=== PATIENT | female | born 1950 | race Caucasian/White ===

== ENCOUNTER 2025-03-30 15:35 | Inpatient (IN) | payer MEDICARE, SELFPAY ==
[2025-03-30] VITALS (7 sets, daily range): BP systolic 119–120; BP diastolic 58–60; PULSE 65–87; RESP 17–18; TEMP 37.2; O2SAT 92–98; BMI 37.1
[2025-03-30] MEDS: NYSTATIN 500,000 UNIT/5 ML UDC 500000 UNIT PO ×2 (17:32→21:18)
[2025-03-30 17:42] LABS: Mucous, Urine 0 SEEN /hpf (<or=2+)
[2025-03-30 18:11] LABS: Color, Urine Yellow (Yellow); Glucose, Dipstick 1000 mg/dl (Normal); Ketone-Dipstick 5 mg/dl (Negative); Leukocyte Esterase-Dipstick 100 /ul (Negative); Nitrite-Dipstick Negative (Negative); Occult Blood-Urine 25 /ul (Negative); Protein-Dipstick 30 mg/dl (Negative); Specific Gravity, Urine 1.025 (1.002-1.030); Urine Bilirubin Dipstick Negative (Negative)
[2025-03-30 19:13] LABS: Red Blood Cells-Urine 0-5 SEEN /hpf (0-5); Squamous Epithelial Cells - UA 0-5 SEEN /hpf (5-10); Yeast-Urine 1+ /hpf (None Seen)
[2025-03-30] MEDS: SACUBITRIL/VALSARTAN 24/26 MG TABLET 1 EACH PO (21:17)
--- NOTE | 2025-03-30 22:36 | NURSING ---
cont pulse ox machine alarm beeping, pt removed cont pulse ox off her finger. Sticker placed back on pt finger, 02 sats 93% on RA.
[2025-03-31] VITALS (7 sets, daily range): BP systolic 104–137; BP diastolic 57–73; PULSE 89–100; RESP 17–18; TEMP 36.3–36.4; O2SAT 95–96; BMI 37.1; BMI 36.6
--- NOTE | 2025-03-31 06:00 | EKG12_ITS ---
Test Reason : AM EKG Blood Pressure : */* mmHG Vent. Rate : 93 BPM Atrial Rate : 93 BPM P-R Int : 160 ms QRS Dur : 168 ms QT Int : 448 ms P-R-T Axes : 43 26 264 degrees QTcB Int : 557 ms Sinus rhythm with Premature atrial complexes Left bundle branch block Abnormal ECG No previous ECGs available Confirmed by GERARDO ESCOBEDO ([id number]), video news editor ROHAN LIMA ([id number]) on 04/06/2025 2:01:01 PM Referred By: AMANDA Confirmed By: GERARDO ESCOBEDO
[2025-03-31 07:39] LABS: Hematocrit 40.9 % (37-47); Hemoglobin 13.9 g/dL (12.0-15.0); Immature Granulocytes Count 0.050 X10^3/uL (0.0-0.0); Mean Corp Hgb Conc 34.0 g/dL (32-36); Mean Corpuscular Volume 88.1 fL (81-99); Mean Platelet Vol. 10.3 fl (6.2-12.0); NRBC Flagged by Analyzer 0 % (0-5); Platelet Count 276 K/mm3 (150-450); RBC Distribution Width CV 13.3 % (11.6-14.6); RBC Distribution Width SD 43.3 fl (35.1-43.9); Red Blood Count 4.64 M/mm3 (4.2-5.4); White Blood Count 10.2 K/mm3 (4.4-11.0)
[2025-03-31 08:15] LABS: AST(SGOT) 35 U/L (<=31); Alanine Aminotransfer ALT/SGPT 38 U/L (<=34); Albumin, Serum 3.2 g/dL (3.4-4.8); Alkaline Phosphatase 79 U/L (35-104); Anion Gap 15 (5-15); BUN 15 mg/dL (4-19); BUN/Creat Ratio 23.0 RATIO (10-20); Calcium,Total 8.9 mg/dL (7.6-11.0); Carbon Dioxide 23.4 mmol/L (21.0-32.0); Chloride 99 mmol/L (98-108); Estimated Creatinine Clearance 74.78 ml/min (50-250); Globulin 3.9 g/dL (2.2-4.2); Glucose 106 mg/dL (70-99); Magnesium 2.1 mg/dL (1.5-2.2); Potassium 3.7 mmol/L (3.3-5.1)
--- NOTE | 2025-03-31 08:34 | NURSING ---
Pt unable to confirm code status. verbal permission given from pt to call sister Janneth, to confirm. Sister verbalized understanding and agreed to have pt be a DNRCC- A no intubation. Code form filled out, signed by doctor, and placed in chart.
[2025-03-31] MEDS: SACUBITRIL/VALSARTAN 24/26 MG TABLET 1 EACH PO ×2 (09:00→20:36)
[2025-03-31] MEDS: Metoprolol(XL)Succ 25 MG Tablet PO (09:01)
--- NOTE | 2025-03-31 09:02 | EX.PCM.HP.RE ---
HPI - General General Date of Admission: 03/30/25 Date of Service: 03/31/25 Chief Complaint: POST STROKE DEBILITY HPI Narrative FOX SEPULVEDA (Etta), is a 74 yO F with past anemia, hypertension and congestive heart failure who presented to the emergency department at [facility] on 03/24/2025 with acute mental status changes. Family had not seen or heard from her in 3 days and called the police for a wellness check. She was found unresponsive in the bathroom. Noncontrast CT brain done in the emergency department demonstrated subacute versus chronic infarct involving the left thalamus and the left occipital lobe. Lactate level was elevated at 3.2. The white blood cell count was 14,000 and UA was consistent with urinary tract infection. The BUN was 23 with a creatinine of 0.78. The troponin was elevated at 184 and 180 while she was in the emergency department. No CK was done. She was placed on IV Rocephin for UTI .but, unfortunately no urine culture was done. She had BC's done and 08/12 was + for a coag neg Staph. MRI of the brain showed findings consistent with subacute ischemia involving the left thalamus and left occipital lobe. She was started on aspirin and Plavix and will continue dual antiplatelet agents for 21 days and then aspirin will be discontinued. She was continued on Zetia and started on a high intensity statin. Transthoracic echocardiogram showed severe left ventricular systolic dysfunction with an EF ranging from 22.26% to 27.4%. There was grade 3 left ventricular diastolic dysfunction, mild to moderate mitral regurgitation, mild aortic regurgitation, a mildly dilated ascending aorta at 3.9 cm. There was no PFO/ASD. Brittani was transferred to the acute inpt rehab unit at [facility] on 03/30/25 for 3 hour of therapy daily to restore function/independence at or near her level prior to the event. Prior the stroke she was living alone and managing on her own. All lab drawn this a.m. was personally reviewed. CBC is entirely within normal limits. Sodium is 137 and the potassium is 3.7. The BUN is 15 with a creatinine of 0.67 and a GFR of 92. Fasting blood sugar is 106. Calcium, phosphorus and magnesium are all within normal limits. LFTs are unremarkable. Urine obtained at admission was significant for proteinuria and glucosuria. There was greater than 100 WBCs seen. There was no bacteria seen but there was yeast present. Urine culture is pending. Lipid panel in December of 2024 showed a HDL of 48, LDL of 98 and triglycerides of 131. The overnight trending pulse ox showed that 76.91% of the time her oxygen saturation ranged from 90 to 100%. The rest of the time it ranged from 71 to 89%. She had 3 desaturation events with a low oxygen saturation of 73%. EKG done last night was personally reviewed. It shows a left bundle branch block, Qt was WNL but, QTC was prolonged to >510 msec Med list from [place] was reviewed. There is no pharmacologic DVT prophylaxis ordered. She was ordered PRN Ativan......I reviewed her OARSS and she was not on Ativan as an OP. Records we got from [facility] had her on Doxepin at night for insomnia. Slept poorly last night per nursing......awakened frequently. We obtained records from [facility] where she was seen in August of 2024 for new onset CHF. EKG at that time showed a LBBB. Echocardiogram showed an enlarged left ventricle with normal thickness and a systolic ejection fraction of 15 to 20% with diffuse hypokinesis of the left ventricle, severely enlarged left atrium, moderate to severe centrally directed mitral valve regurgitation, mild aortic valve stenosis and trivial regurgitation, mildly enlarged right ventricle and an estimated right ventricular systolic pressure of 60. The IVC was dilated. She underwent cardiac catheterization on 09/10/2024 and it showed a 50% stenosis of the mid LAD and a 50% stenosis of the mid RCA. Left main had no evidence of disease. Will need to find out if she follows regularly with a formula bottler. [facility] Medical History (Updated 04/01/25 @ 11:[address] Nicolle Seaman, ) Pulmonary hypertension Mild aortic stenosis Mitral regurgitation Left atrial enlargement Coronary artery disease Grade III diastolic dysfunction Cardiomyopathy Obesity, Class II, BMI 35-39.9 Diverticulosis Right renal stone CVA (cerebral vascular accident) Congestive heart failure (CHF) Hypertension Hypercholesterolemia Home Medications ?Medication ?Instructions ?Recorded ?Last Taken ?Type aspirin 81 mg tablet 81 mg PO DAILY heart health 03/30/25 Unknown History atorvastatin 40 mg tablet (Lipitor) 40 mg PO QHS cholesterol 03/30/25 Unknown History clopidogrel 75 mg tablet 75 mg PO DAILY heart 03/30/25 Unknown History empagliflozin 10 mg tablet 10 mg PO DAILY glucose 03/30/25 Unknown History (Jardiance) ezetimibe 10 mg tablet 10 mg PO DAILY cholesterol 03/30/25 Unknown History furosemide 40 mg tablet 40 mg PO BID fluid 03/30/25 Unknown History metoprolol succinate 25 mg 25 mg PO DAILY heart rate 03/30/25 Unknown History tablet,extended release 24 hr nitrofurantoin 100 mg PO BID UTI 03/30/25 Unknown History monohydrate/macrocrystals 100 mg capsule (Macrobid) nystatin 100,000 unit/gram topical 1 applic topical BID redness 03/30/25 Unknown History powder sacubitril 24 mg-valsartan 26 mg 1 tab PO BID CHF 03/30/25 Unknown History tablet (Entresto) spironolactone 25 mg tablet 12.5 mg PO DAILY blood pressure 03/30/25 Unknown History Allergy/AdvReac Type Severity Reaction Status Date / Time No Known Allergies Allergy Verified 03/30/25 16:01 Family History (Updated 03/31/25 @ 10:[address] Nicolle Seaman DO) Mother Heart disease Hypertension Family History unable to obtain Surgical History no surgical history Social History (Updated 03/31/25 @ 10:[address] Nicolle Seamna DO) household members: none Smoking Status: Never smoker alcohol intake: never Vital Signs Vital Signs Vital Signs: 03/30/25 16:22 03/30/25 16:34 03/30/25 16:52 Temperature 98.9 F 98.9 F Temperature Source Oral Temporal Pulse Rate 74 65 74 Pulse Strength Respiratory Rate 17 17 Respiratory Effort Normal Non-Labored Respiratory Depth Normal Respiratory Pattern Normal Blood Pressure 120/58 L 120/58 L Blood Pressure Mean 78 78 Blood Pressure Source Monitor Monitor Blood Pressure Position Semi-Fowlers Semi-Fowlers Blood Pressure Location Right Arm Right Arm Pulse Ox 94 94 95 Oxygen Delivery Method Room Air Room Air Room Air Oxygen Flow Rate (L/min) Fraction of Inspired Oxygen (FIO2) 03/30/25 20:00 03/30/25 21:07 03/30/25 21:30 Temperature Temperature Source Pulse Rate 69 Pulse Strength Respiratory Rate 18 Respiratory Effort Respiratory Depth Respiratory Pattern Blood Pressure 119/60 Blood Pressure Mean 79 Blood Pressure Source Monitor Blood Pressure Position Semi-Fowlers Blood Pressure Location Left Forearm Pulse Ox 96 98 Oxygen Delivery Method Room Air Room Air Nasal Cannula Oxygen Flow Rate (L/min) 2 Fraction of Inspired Oxygen (FIO2) 03/30/25 22:00 03/30/25 22:06 03/30/25 22:34 Temperature Temperature Source Pulse Rate 87 Pulse Strength Normal (2+) Respiratory Rate Respiratory Effort Respiratory Depth Respiratory Pattern Blood Pressure Blood Pressure Mean Blood Pressure Source Blood Pressure Position Blood Pressure Location Pulse Ox 94 92 Oxygen Delivery Method Room Air Oxygen Flow Rate (L/min) Fraction of Inspired Oxygen (FIO2) 21 03/31/25 04:00 03/31/25 08:10 Temperature 97.3 F L Temperature Source Temporal Pulse Rate 89 Pulse Strength Respiratory Rate 17 Respiratory Effort Respiratory Depth Respiratory Pattern Blood Pressure 121/73 H Blood Pressure Mean 89 Blood Pressure Source Monitor Blood Pressure Position Semi-Fowlers Blood Pressure Location Left Forearm Pulse Ox 95 95 Oxygen Delivery Method Room Air Room Air Oxygen Flow Rate (L/min) Fraction of Inspired Oxygen (FIO2) Weight Weight: 227 lb 1.218 oz Body Mass Index (BMI) 36.6 Indicators for Scoring Admitted with or Primary Diagnosis of CVA/Stroke: Yes Hx of CVA/Stroke: Yes Modified Mclennan Score MRS Score at time of Evaluation: 4-Moderate/severe disability NIHSS NIHSS 1a. Level of Consciousness: 0 - Alert; keenly responsive 1b. LOC Questions: 2 - Answers NEITHER question correctly 1c. LOC Commands: 0 - Performs BOTH tasks correctly 2. Best Gaze: 0 - Normal 3. Visual: 0 - No visual loss 4. Facial Palsy: 0 - Normal symmetrical movements (Tongue protrudes on the midline) 5a. Left Arm: 0 - No drift; arm holds 90 (or 45) degrees for full 10 seconds 5b. Right Arm: 2 - Some effort against gravity; (she is able to flex the RUE at the elbow somewhat. ) 6a. Left Le - No drift; leg holds 30-degree position for full 5 seconds 6b. Right Le - No effort against gravity; leg falls to bed immediately (she has some movement at the knee and the ankle and she is able to plantar fles and dorsiflex) 7. Limb Ataxia: 0 - Absent (Cannot be tested due to no effort against gravity with the R arm or leg. ) 8. Sensory: 1 - [id number] sensory loss; (decreased on the R compared to the left. ) 9. Best Language: 2 - Severe aphasia; (expressive > receptive. ) 10. Dysarthria: 1 = Laud-ye-ndjzctph dysarthria; 11. Extinction and Inattention: 0 - No abnormality Total: 11 Stroke Questions Stroke Team Activated: No Physical Exam Narrative She is moaning a lot and can not tell me why. Making good eye contact when I am addressing her or the therapists are talking with her. Const alert and no apparent distress General Appearance: cooperative; Negative for combative Nutritional Appearance: obese HEENT normocephalic and head/scalp atraumatic HEENT Narrative: Dry MM and she has thrush Eyes PERRL, EOMs intact bilaterally, conjunctivae normal, no scleral icterus and normal visual quinn by confrontation Eyes Narrative: No discharge eyes. No mattering of the eyelashes. General Eye: normal appearance of both eyes Neck supple, no JVD, No nodes and no carotid bruits General: trachea midline Chest Chest: symmetrical chest wall rise Resp normal respiratory effort and normal air movement Resp Narrative: Not tachypneic. Respirations are not labored. She does seem to get MARADIAGA. She laid flat in bed to be examined and she had no orthopnea. Takes the oxygen off when nursing applies. Effort and Inspection: Negative for pursed lip breathing Cardio regular rate, regular rhythm, S1 normal heart sound, S2 normal heart sound, no murmurs, no rub and no gallops Cardio Narrative: No ectopy GI normal to inspection, nondistended, normoactive bowel sounds, soft to palpation and non-tender GI Narrative: Obese. No guarding palpation. Bladder / Kidney Exam: catheter in place urethral (inserted due to severe excoriation of the perineum present at admission due to yeast and to being wet. ) Back/Spine General Back: CVA tenderness Extremity Extremity Narrative: No pitting edema of the ankles. ARAM wraps are too tight and were not wrapped properly. Pedal pulses are 2+. No openings in the skin of the LE's. No heel ulcers. Skin Skin Narrative: Skin damage over the buttocks and the perineum appear to be related to urinary and fecal incontinence rather than to pressure ulceration. She has an erythematous rash over the mons, the inner thighs, the labia majora, beneath the pannus and there are satellite lesions present in keeping with a alexandro infection. No odor. Hair: normal Neuro Neuro Narrative: The tongue protrudes on the midline. The palate elevates symmetrically. There is no appreciable facial droop. The R eye does not close as tightly as the left. She can shrug both shoulders. She was able to flex the R biceps for OT. She has a weak hand electric gas appliances demonstrator on the R. No effort against gravity in the RLE. She is able to plantar flex and dorsiflex both feet. CAn not test for ataxia. She has some dysarthria and she has aphasia. There is decreased sensation on the R when compared to the left. Psych cooperative Results Lab / Micro Data 03/31/25 07:05 03/31/25 07:05 Labs: Laboratory Results - last 24 hr 03/30/25 17:30: Urine Color Yellow, Urine Clarity Clear, Urine pH 5.0, Ur Specific [place] 1.025, Urine Protein 30 H, Urine Glucose (UA) 1000 H, Urine Ketones 5 H, Urine Occult Blood 25 H, Urine Nitrite Negative, Urine Bilirubin Negative, Urine Urobilinogen Normal, Ur Leukocyte Esterase 100 H, Urine RBC 0-5 SEEN, Urine WBC >100 SEEN, Ur Squamous Epith Cells 0-5 SEEN, Urine Bacteria 0 SEEN, Urine Mucus 0 SEEN, Urine Yeast 1+ 03/30/25 18:37: POC Glucose 120 H 03/30/25 21:12: POC Glucose 122 H 03/31/25 06:34: POC Glucose 119 H 03/31/25 07:05: WBC 10.2, RBC 4.64, Hgb 13.9, Hct 40.9, MCV 88.1, MCH 30.0, MCHC 34.0, RDW Std Deviation 43.3, RDW Coeff of Tonny 13.3, Plt Count 276, MPV 10.3, Immature Gran % (Auto) 0.500, Neut % (Auto) 75.5 H, Lymph % (Auto) 13.6 L, [place] % (Auto) 7.0, Eos % (Auto) 2.7, Baso % (Auto) 0.7, Absolute Neuts (auto) 7.7, Absolute Lymphs (auto) 1.39, Nucleated RBC % 0, Sodium 137, Potassium 3.7, Chloride 99, Carbon Dioxide 23.4, Anion Gap 15, BUN 15, Creatinine 0.67 L, Estim Creat Clear Calc 74.78, Est GFR (MDRD) Non-Af 92, BUN/Creatinine Ratio 23.0 H, Glucose 106 H, Hemoglobin A1c 5.7, Calcium 8.9, Phosphorus 3.3, Magnesium 2.1, Total Bilirubin 0.45, AST 35 H, ALT 38 H, Alkaline Phosphatase 79, Total Protein 7.1, Albumin 3.2 L, Globulin 3.9, Albumin/Globulin Ratio 0.8 L Assessment & Plan Assessment/Plan (1) Physical debility: (2) CVA (cerebral vascular accident): QUALIFIERS: CVA mechanism: unspecified Qualified Code(s): I63.9 - Cerebral infarction, unspecified (3) Left hemiplegia: (4) Aphasia complicating stroke: (5) Apraxia of speech: (6) Intertrigo of genitocrural region: (7) Intertrigo of skin fold of abdomen: (8) Thrush, oral: (9) UTI (urinary tract infection): QUALIFIERS: Urinary tract infection type: acute cystitis Hematuria presence: without hematuria Qualified Code(s): N30.00 - Acute cystitis without hematuria PLAN: Present at admission to acute rehab. She was transferred to on Macrobid and prior to that received Rocephin at the previous hospital. (10) Urinary incontinence: QUALIFIERS: Urinary Incontinence type: urinary incontinence without sensory awareness Qualified Code(s): N39.42 - Incontinence without sensory awareness (11) Fecal incontinence: QUALIFIERS: Fecal incontinence type: full incontinence of feces Qualified Code(s): R15.9 - Full incontinence of feces (12) Hypoxemia associated with sleep: PLAN: Overnight trending pulse ox abnormal. High risk for RASHARD. Plan on a sleep study at [place] from rehab. (13) Cardiomyopathy: QUALIFIERS: Cardiomyopathy type: dilated Qualified Code(s): I42.0 - Dilated cardiomyopathy PLAN: non-obstructive CAD on Cath (14) Grade III diastolic dysfunction: (15) Coronary artery disease: QUALIFIERS: Coronary Disease-Associated Artery/Lesion type: qu[place] artery [place] vs. transplanted heart: qu[place] heart Associated angina: without angina Qualified Code(s): I25.10 - Atherosclerotic heart disease of [place] coronary artery without angina pectoris (16) Left atrial enlargement: (17) Mitral regurgitation: QUALIFIERS: Cardiac valve disease etiology: nonrheumatic Qualified Code(s): I34.0 - Nonrheumatic mitral (valve) insufficiency PLAN: Moderate to severe. (18) Mild aortic stenosis: (19) Left bundle branch block: (20) QT prolongation: (21) Pulmonary hypertension: PLAN: PA systolic estimated at 60 on ECHO done within the past year. (22) Hypercholesterolemia: (23) Hypertension: QUALIFIERS: Hypertension type: primary hypertension Qualified Code(s): I10 - Essential (primary) hypertension (24) Obesity, Class II, BMI 35-39.9: (25) Diverticulosis: (26) Right renal stone: PLAN: Plan PLAN PT for gait stability OT for ADL's ST for evaluation Analgesics as needed Bowel protocol Fall precautions Assess for Anxiety/Depression GI prophylaxis -not at this time. She ate 75 to 100% of her breakfast and has no guarding when I palpate the epigastric region. No history of GERD or peptic ulcer disease when I review her notes from [facility]. DVT prophylaxis with Lovenox 40 mg subcu daily Follow up with PCP, cardiology (Dr. Sanches at [place]), neurology and [facility] following DC from Rehab AM lab including CMP, CBC, Mag and Phos - personally reviewed. Magnesium and potassium are within normal limits. Hemoglobin A1c is 5.7. She is on empagliflozin for congestive heart failure, not for diabetes mellitus. Had been taking doxepin at bedtime but, she has QT prolongation and this medication is contraindicated. Will try Melatonin. Will need a 30-day event monitor at discharge. Etiology of the ischemic stroke? No hemorrhagic conversion on imaging. No known hx of AF. Suspect she has RASHARD......could be having PAF when she is hypoxic at night. Continue dual antiplatelet agents and discontinue aspirin after 21 days. Will continue on Plavix. Continue Zetia and high intensity Lipitor. Continue Entresto and other cardiac medications. Avoid medications that can lead to QT prolongation. Change the Nystatin powder to cream. Change the Nystatin swish and swallow to Mycelex.......she is unable to understand swishing. Monostat vaginal cream for 7 days for suspected vaginal candidiasis. Maintain the Barillas catheter for a few days to try and get the perineum healed. Trying to keep oxygen supplementation on anytime she is napping or sleeping due to sleep hypoxemia. If she is able would like to do a formal sleep study at the time of discharge to assess for obstructive sleep apnea. She keeps taking the oxygen off so this is going to be difficult. Acetaminophen every 6 hours as needed for pain. Charges/Coding Visit Charges Inpatient E&M: 12331 Init Hosp L3
[2025-03-31] MEDS: NYSTATIN 500,000 UNIT/5 ML UDC 500000 UNIT PO (09:03)
--- NOTE | 2025-03-31 09:27 | WOUNDNOTE ---
skin photo: bilateral buttocks
--- NOTE | 2025-03-31 09:27 | WOUNDNOTE ---
skin photo: perineum
--- NOTE | 2025-03-31 09:29 | WOUNDNOTE ---
Verbal consent obtained from patient for skin photos of buttocks and perineum. therapy, Dr Seaman, and nursing present as well. see skin photos.
--- NOTE | 2025-03-31 09:30 | WOUNDNOTE ---
Was asked to see patient for evaluate perineum and bilateral buttocks. patient was sent to [facility] from [facility]. Pt with incontinence associated skin damage. does not appear to be pressure related. pt was incontinent of soft unformed stool. paige care provided. applied Triad cream. Pt tolerated well. see skin photos.
[2025-03-31] MEDS: Nystatin/Triamcin Cream Tube 1 APPLIC TOPICAL ×2 (13:28→20:35)
--- NOTE | 2025-03-31 14:54 | CHAPLAIN ---
Type of Pastoral Visit _x__ Initial Visit ___ Follow-up Visit ___ On-call Visit ___ General Patient Visit ___ Spiritual Assessment ___ Family Conference ___ Bereavement ___ Rapid Response ___ Code Blue ___ Other (describe below) Pastoral Care Referral From _x__ Patient ___ Family ___ Nurse ___ Physician ___ Telegraph Service Clerk ___ Senior Statistician ___ Other (describe below) Sacrament/Intervention _x__ Active listening ___ Anointing ___ Orthodox ___ Bereavement ___ Communion ___ Ceci exploration ___ ___ Life review _x__ Prayer ___ Reconciliation ___ Sacrament of Sick _x__ Supportive presence ___ Wedding ___ Other (describe below) Pastoral Comments patient is awake and acknowledges her weakness as her therapies begin in [place]; pt makes attempts to answer questions and make statements but there is some effort to it all; pt clearly accepts invitation for a prayer; support given and offer of future help
--- NOTE | 2025-03-31 16:09 | REHABEVAL_ITS ---
Admission Information Primary Diagnosis:: Post stroke debility Status Changes from Prescreening?: No changes Identified Actual Problem List:: Infection, UTI, Skin Intergrity, Pain, ALteration in Cmfrt, Cognitve Impr/Memory Loss, Bladder Incontinence, Bowel, Incontinence, Alteration in Sleep, Mobility Impaired, Self Care Deficit, BP, Hypertension, Alteration/ Air Exchange and Alteration-Leisure Activ. Potential Problem List:: DVT, Bleeding, Infection, UTI, Aspiration, Falls, Skin Integrity and Depression Risk of Complications DVT: LMWH and - (Arthur wrap's) Bleeding: Monitor Lab Values, Nursing to Teach Precautions for anti-coagulation therapy., Wound, if applicable, to be assessed every shift. and Stroke patients assessed for lethargy or change in status. Infection: Clinical Staff to Monitor for S/S of infection: and S/S of infection include fever, redness, warmth, etc. Urinary Tract Infection: Monitor for frequency, burning, discomfort, or incon tinence. and Nursing will obtain urine sample for urinalysis and C&S when ordered. Aspiration: Clinical staff will monitor for coughing, drooling, congestion., Speech will evaluate swallowing and dsyphasia. and Nursing will monitor patient swallowing during meals. Falls: Patient will be evaluated for Fall Precautions and Patient will be placed on Fall Precautions as indicated per protocol. Skin Breakdown: Nursing will assess skin daily using assessment tool. and Nursing will place on Skin Breakdown Precautions as indicated. Pain: Clinical staff will assess patient's pain level per protocol., Medications will be given, if needed, and the pain level reassessed. and Other methods: Massage, distraction, decrease stimulus, etc. used PRN. Plan of Care Patient requires physician specializing in physical medicine and rehab oversight to provide close medical supervision of rehab issues including: Pain Management, Sleep Problems, Bowel and Bladder, Medical and co-morbidity Management, DVT prophylaxis, Rehabilitation Leadership and Coordination of treatment team Patient needs Physical Therapy: For a minimum of 1 hour and At least 5 out of 7 days Patient needs Physical Therapy to improve:: Mobility, Strengthening, Transfers, Stretching, ROM, Endurance, Stairs, Gait and Balance Patient needs Occupational Therapy: For a minimum of 1 hour and At least 5 out of 7 days Patient needs Occupational Therapy to improve ADL's incl.: Eating, Grooming, Bathing, Dressing, Toileting, Toilet transfers, Community Reintegration, Higher functioning activities, Household tasks, Adaptive Equipment, Splinting and Other activities as determined Patient requires speech therapy: For a minimum of 1 hour and At least 5 out of 7 days Patient requires speech therapy for: Swallowing, Cognition, Language Skills and Compensatory Strategies Patient requires 03/03 Rehabilitation Nursing for: Pain Issues, Identifying and preventing risk factors, Monitoring and reporting current medical conditions, Assisting with ambulation, transfer, and all ADL's, Teaching patients about disease process and medications, Family teaching, Providing safe environment, Bowel and Bladder Issues, Skin integrity and Medication Management Patient needs Dry Starch Operator/ Case Management for: Discharge Planning, Arranging Home Equipment or Services and Family Interventions Patient needs Dietary and Nutrition Services for: Adequate Nutrition, Nutritional Supplements and Nutritional Education Goals Goals Patient will remain: free from falls Patient will perform eating at: MOD I level of assist. Patient will perform bed mobility at: MOD I level of assist. Patient will complete transfers from bed to chair at: - (Minimum assistance) Patient will ambulate: - (20 feet with least restrictive device at min assist) Patient will complete upper body dressing at: - (Min assist) Patient will complete lower body dressing at: - (Min assist with adaptive equipment as needed) Patient will complete toilet transfer at: - (Min assist) Patient will complete toileting at: - (Min assist) Patient will perform bathing at: - (Upper body bathing at min assist and lower body bathing at min assist with adaptive equipment as needed) Patient will perform Tub/Shower transfer at: - (Min assist using DME as needed) Patient will complete grooming at: - (Set up while sitting at the sink) Patient will achieve: - (2 steps with 2 handrails at min assist to allow access to the home entrance) Patient will have pain level of: of 3 or less Patient's skin will: remain intact Patient will receive: adequate nutrition. Discharge Planning Pt Prognosis for Sig. Practical Improv. w/in Reasonable Time: Good Estimated Length of stay (days): 21 Anticipated D/C Destination: TBD Was Preadmission Assessment Accurate?: Yes
--- NOTE | 2025-03-31 16:09 | NURSING ---
New orders this shift for mycelex, triad cream, monistat at hs, and lovenox injections daily. Had overnight pulse ox completed and needs to wear oxygen at 2 lpm via nasal cannula when sleeping and at bedtime.
--- NOTE | 2025-03-31 17:30 | NURSING ---
transport nurse is not working, beeping despite replacing and moving around. contact company and they will send a replacement device to her home. current device taken off and packed away to be sent back via [employer].
[2025-03-31] MEDS: Miconazole-7 Nitrate Cream 1 APPLIC VAGINAL (20:36)
[2025-03-31] MEDS: MELATONIN 3 MG TABLET PO (20:37)
[2025-04-01] VITALS (8 sets, daily range): BP systolic 110–145; BP diastolic 61–87; PULSE 78–97; RESP 16–18; TEMP 36.3–36.9; O2SAT 96–98; BMI 36.1
[2025-04-01] MEDS: Nystatin/Triamcin Cream Tube 1 APPLIC TOPICAL ×3 (06:47→21:13)
[2025-04-01] MEDS: SACUBITRIL/VALSARTAN 24/26 MG TABLET 1 EACH PO ×2 (07:47→21:08)
[2025-04-01] MEDS: Metoprolol(XL)Succ 25 MG Tablet PO (07:48)
--- NOTE | 2025-04-01 10:40 | RAD_ITS ---
PROCEDURE: LUMBAR SPINE 2 OR 3 VIEWS 04/01/2025 REASON FOR EXAM: PAIN POST FALL TECHNIQUE: LUMBAR SPINE 2 OR 3 VIEWS COMPARISON: None. RAD/Lumbar Spine 2 or 3 Views IMPRESSION: Moderate aortic calcification is seen. Prominent degenerative changes are seen throughout the lumbar spine, with disc narrowing at every level greatest at L3-L4 and L4-L5 levels. Mid to lower lumbar posterior facet hypertrophy is seen. No evidence of spondylolysis or spondylolisthesis. No fracture site is evident. If clinical concern persists, short-term follow-up imaging may be obtained to r ule out a currently occult fracture. Reading Location: [place] [id number]
--- NOTE | 2025-04-01 10:40 | RAD_ITS ---
PROCEDURE: ABDOMEN SINGLE VIEW 04/01/2025 REASON FOR EXAM: CONSTIPATION TECHNIQUE: Three-view supine abdomen COMPARISON: None. RAD/Abdomen Single View IMPRESSION: Contrast material is seen throughout numerous descending colon and sigmoid colo n diverticula. The bowel-gas pattern is unremarkable. No excess stool burden is clearly appre ciated. Prominent degenerative changes of the spine are seen. At least mild bilateral sacroiliac joint degenerative changes are noted. Asymmetric right hip joint degenerative changes are seen, with associated at le ast mild joint space narrowing. Reading Location: [place] [address]
--- NOTE | 2025-04-01 11:07 | PN_ITS ---
Subjective Subjective Afebrile VSS -blood pressure over the past 24 hours has ranged from 104/57 to 137/65. The heart rate is within normal limits. Maintaining appropriate oxygen saturation on RA Oral intake - FOOD variable. Ate 75 to 100% of her breakfast this morning and 50 to 74% of supper last night. FLUIDS poor. Oral intake on 03/31/2025 was only 710 cc. Since admission she is minus between 1400 and 1500 cc. The weight today is 225 pounds and 1 ounce which is down from 227 pounds and 1.2 ounces yesterday. Discussed with nursing - no problems that need addressed Reviewed the THERAPY notes Medication list reviewed. she did not sleep well with Melatonin last night per nursing. Slept intermittently. She moans fairly constantly and yells out at times. Remains incontinent of stool and urine.......no significant BM....mostly small smear. She is unaware that she is having a BM or that she is wet. Could not tell me her age or the month today. Answering yes and no questions appropriately when I asked if she was having pain she said yes but, was unable to tell me where the pain was located. She is not tachypneic. I reviewed the notes we received from cardiologyand her PCP. Objective Data Objective Data Vital Signs: Vital Signs Temp Pulse Resp BP Pulse Ox O2 Del Method O2 Flow Rate 98.4 F 78 16 110/62 96 Room Air 2 04/01/25 06:52 04/01/25 10:00 04/01/25 06:52 04/01/25 10:00 04/01/25 08:31 04/01/25 10:00 03/30/25 21:30 FiO2 21 03/30/25 22:34 Oxygen Flow Rate (L/min) 2 Oxygen Delivery Method Room Air Weight: 225 lb 1 oz Body Mass Index (BMI) 36.1 Intake & Output: Intake and Output for Last 24 Hours 03/30/25 03/31/25 04/01/25 23:59 23:59 23:59 Intake Total 360 / 360 710 / 710 Output Total 450 / 450 1350 / 1650 700 / 700 Balance -90 / -90 -640 / -940 -700 / -700 Lab / Micro Data 03/31/25 07:05 03/31/25 07:05 Labs: Laboratory Results - last 24 hr 03/31/25 11:23: POC Glucose 117 H 03/31/25 16:10: POC Glucose 101 03/31/25 21:45: POC Glucose 126 H 04/01/25 06:47: POC Glucose 120 H Radiography Diagnostic Testing: Radiology Impression KUB X-Ray 04/01/25 10:40 IMPRESSION: Contrast material is seen throughout numerous descending colon and sigmoid colon diverticula. The bowel-gas pattern is unremarkable. No excess stool burden is clearly appreciated. Prominent degenerative changes of the spine are seen. At least mild bilateral sacroiliac joint degenerative changes are noted. Asymmetric right hip joint degenerative changes are seen, with associated at least mild joint space narrowing. Reading Location: [facility] Lumbar Spine X-Ray 04/01/25 10:40 IMPRESSION: Moderate aortic calcification is seen. Prominent degenerative changes are seen throughout the lumbar spine, with disc narrowing at every level greatest at L3-L4 and L4-L5 levels. Mid to lower lumbar posterior facet hypertrophy is seen. No evidence of spondylolysis or spondylolisthesis. No fracture site is evident. If clinical concern persists, short-term follow-up imaging may be obtained to rule out a currently occult fracture. Reading Location: [place] [address] Physical Exam Const alert Constitutional Narrative: Looks distressed and she is moaning. when I asked if she needed to use the BR she said yes........nursing reports she had already been incontinent. Severe speech apraxia. Difficult to discern what she needs. General Appearance: cooperative HEENT Mouth: dry mucous membranes Neck supple Cardio regular rhythm, no murmurs, no rub and no gallops Cardio Narrative: resting HR is mildly increased. No ectopy. GI normal to inspection, nondistended, normoactive bowel sounds, soft to palpation and non-tender GI Narrative: No guarding with palpation Extremity Extremity Narrative: No discernible calf tenderness. No pitting edema of the ankles or distal lower extremities. Assessment & Plan Assessment/Plan (1) Physical debility: (2) CVA (cerebral vascular accident): QUALIFIERS: CVA mechanism: unspecified Qualified Code(s): I63.9 - Cerebral infarction, unspecified (3) Left hemiplegia: (4) Aphasia complicating stroke: (5) Apraxia of speech: (6) Intertrigo of genitocrural region: (7) Intertrigo of skin fold of abdomen: (8) Thrush, oral: (9) UTI (urinary tract infection): QUALIFIERS: Urinary tract infection type: acute cystitis H ematuria presence: without hematuria Qualified Code(s): N30.00 - Acute cystitis without hematuria (10) Urinary incontinence: QUALIFIERS: Urinary Incontinence type: urinary incontinence without sensory awareness Qualified Code(s): N39.42 - Incontinence without sensory awareness (11) Fecal incontinence: QUALIFIERS: Fecal incontinence type: full incontinence of feces Q ualified Code(s): R15.9 - Full incontinence of feces (12) Hypoxemia associated with sleep: (13) Cardiomyopathy: QUALIFIERS: Cardiomyopathy type: dilated Qualified Code(s): I42.0 - Dilated cardiomyopathy (14) Grade III diastolic dysfunction: (15) Coronary artery disease: QUALIFIERS: Coronary Disease-Associated Artery/Lesion type: [place] artery [place] vs. transplanted heart: [place] heart Associated angina: without angina Qualified Code(s): I25.10 - Atherosclerotic heart disease of [place] coronary artery without angina pectoris (16) Left atrial enlargement: (17) Mitral regurgitation: QUALIFIERS: Cardiac valve disease etiology: nonrheumatic Q ualified Code(s): I34.0 - Nonrheumatic mitral (valve) insufficiency (18) Mild aortic stenosis: (19) Left bundle branch block: (20) QT prolongation: (21) Pulmonary hypertension: (22) Hypercholesterolemia: (23) Hypertension: QUALIFIERS: Hypertension type: primary hypertension Qualified Code(s): I10 - Essential (primary) hypertension (24) Obesity, Class II, BMI 35-39.9: (25) Diverticulosis: (26) Right renal stone: PLAN: Plan 1. Continue therapy 2. Obtain a KUB and lumbar sacral spine x-rays today 3. Discontinue Accu-Cheks....she is not diabetic. HGBA1C was 5.7. 4. Sleep study at discharge from rehab 1. Do you snore loudly? Unknown 2. Do you often feel tired, fatigued or sleepy during the day? Unknown 3. Has anyone ever observed you stop breathing during sleep? Unknown 4. Do you have (or are you being treated for) HTN? Yes BMI 36.3 AGE 74 Neck circumference 48 cm Gender female Total 4.....consistent with high risk for RASHARD. She also has an abnormal overnight trending pulse ox with desaturations lasting > 60 sec. Charges/Coding Visit Charges Inpatient E&M: 88579 Subs Hosp L1
[2025-04-01] MEDS: MELATONIN 3 MG TABLET PO (21:08)
[2025-04-01] MEDS: Miconazole-7 Nitrate Cream 1 APPLIC VAGINAL (21:09)
[2025-04-02] VITALS (8 sets, daily range): BP systolic 112–126; BP diastolic 55–68; PULSE 82–95; RESP 16–18; TEMP 36.2–36.5; O2SAT 95–100; BMI 35.9
[2025-04-02] MEDS: Nystatin/Triamcin Cream Tube 1 APPLIC TOPICAL ×3 (06:56→23:46)
[2025-04-02] MEDS: SACUBITRIL/VALSARTAN 24/26 MG TABLET 1 EACH PO ×2 (07:55→23:45)
[2025-04-02] MEDS: Metoprolol(XL)Succ 25 MG Tablet PO (07:56)
[2025-04-02] MEDS: Miconazole-7 Nitrate Cream 1 APPLIC VAGINAL (23:45)
[2025-04-02] MEDS: MELATONIN 3 MG TABLET PO (23:45)
[2025-04-03 03:10] VITALS: BMI 35.9
[2025-04-03 06:00] VITALS: BP 117/54; PULSE 82; RESP 16; TEMP 36.4; O2SAT 98; BMI 36.1
[2025-04-03] MEDS: Nystatin/Triamcin Cream Tube 1 APPLIC TOPICAL ×3 (06:43→22:57)
[2025-04-03 08:01] VITALS: PULSE 82
[2025-04-03] MEDS: Metoprolol(XL)Succ 25 MG Tablet PO (08:01)
[2025-04-03] MEDS: SACUBITRIL/VALSARTAN 24/26 MG TABLET 1 EACH PO ×2 (08:02→22:56)
[2025-04-03 11:11] VITALS: BMI 36.1
[2025-04-03 17:56] VITALS: BP 108/54; PULSE 92; RESP 18; TEMP 36.3
[2025-04-03] MEDS: MELATONIN 3 MG TABLET PO (22:57)
[2025-04-03] MEDS: Miconazole-7 Nitrate Cream 1 APPLIC VAGINAL (22:57)
[2025-04-03 23:15] VITALS: BP 116/73; PULSE 82; RESP 18; TEMP 36.7; O2SAT 95
[2025-04-04 03:10] VITALS: BMI 36.1
[2025-04-04 05:52] VITALS: BP 125/54; PULSE 81; RESP 16; TEMP 36.7; O2SAT 100
[2025-04-04] MEDS: Nystatin/Triamcin Cream Tube 1 APPLIC TOPICAL ×3 (05:57→20:05)
[2025-04-04 07:50] VITALS: PULSE 81
[2025-04-04] MEDS: Metoprolol(XL)Succ 25 MG Tablet PO (07:50)
[2025-04-04] MEDS: SACUBITRIL/VALSARTAN 24/26 MG TABLET 1 EACH PO ×2 (07:50→20:07)
--- NOTE | 2025-04-04 09:39 | PN_ITS ---
Subjective Subjective Brittani was seen on TEAM rounds today. Family was present in the room. All questions were answered to their satisfaction. Afebrile VSS -blood pressure over the weekend ranged from 108/54 to 122/59. The heart rate is within normal limits. Maintaining appropriate oxygen saturation on RA Oral intake - FOOD mostly good FLUIDS good Discussed with nursing - no problems that need addressed. Nursing tells me that the perineum is doing much better than at admission and the pt denies any pain in the groin/perineum today. Reviewed the THERAPY notes Medication list reviewed. When I saw the patient prior to TEAM meeting she was doing very well. She was enunciating much better and her voice projected well. she was speaking slowly for increased clarity. She did not appear to be in any discomfort and she was smiling and very alert. She told me she had some discomfort in the RUE but, it was controlled with Tylenol and she did not feel she needed any additional medication. She was calm all morning and working with therapy. When her family came she started moaning and yelling and c/o terrible pain in her legs. She was slapping the bed with the LUE but, she would stop moaning and yelling to reach for her water and then take a drink and go back to slapping the LUE and L leg on the bed. After her family left she was calm and quit moaning and yelling. She had no RODRIGUES, lightheadedness, N/V/abd pain, calf pain. She denied pain anywhere except the RUE until her family entered the room. Objective Data Objective Data Vital Signs: Vital Signs Temp Pulse Resp BP Pulse Ox O2 Del Method O2 Flow Rate 98.0 F 81 16 125/54 H 100 Room Air 2 04/04/25 05:52 04/04/25 07:50 04/04/25 05:52 04/04/25 05:52 04/04/25 05:52 04/04/25 05:52 04/02/25 00:00 FiO2 21 03/30/25 22:34 Oxygen Flow Rate (L/min) 2 Oxygen Delivery Method Room Air Weight: 224 lb 6.889 oz Body Mass Index (BMI) 36.1 Intake & Output: Intake and Output for Last 24 Hours 08/23/25 08/24/25 08/25/25 23:59 23:59 23:59 Intake Total 1260 / 1380 1590 / 1590 200 / 200 Output Total 1025 / 1025 1225 / 1225 700 / 700 Balance 235 / 355 365 / 365 -500 / -500 Lab / Micro Data 03/31/25 07:05 03/31/25 07:05 Micro: Microbiology 03/30/25 17:30 Urine, Clean Catch Urine Culture - Final Presumptive C albicans Physical Exam Const alert and no apparent distress Constitutional Narrative: Smiling, speech is much clearer and I am able to understand her without difficulty. She is calm and pleasant. General Appearance: cooperative HEENT HEENT Narrative: Thrush has resolved. Denies painful swallowing. Resp normal respiratory effort and clear to auscultation bilaterally Effort and Inspection: Negative for tachypneic Cardio regular rate, regular rhythm and no gallops Cardio Narrative: No ectopy GI normal to inspection, nondistended, normoactive bowel sounds and soft to palpation GI Narrative: Having regular BM's....she is incontinent. Extremity Extremity Narrative: No pitting edema of the LE's. No calf pain. Skin Skin Narrative: the intertrigo is coming along.....not completely resolved but, much better. She denies pain today. Assessment & Plan Assessment/Plan (1) Physical debility: (2) CVA (cerebral vascular accident): QUALIFIERS: CVA mechanism: unspecified Qualified Code(s): I63.9 - Cerebral infarction, unspecified (3) Left hemiplegia: (4) Aphasia complicating stroke: (5) Apraxia of speech: (6) Intertrigo of genitocrural region: (7) Intertrigo of skin fold of abdomen: (8) Urinary incontinence: QUALIFIERS: Urinary Incontinence type: urinary incontinence without sensory awareness Qualified Code(s): N39.42 - Incontinence without sensory awareness (9) Fecal incontinence: QUALIFIERS: Fecal incontinence type: full incontinence of feces Q ualified Code(s): R15.9 - Full incontinence of feces (10) Hypoxemia associated with sleep: (11) Cardiomyopathy: QUALIFIERS: Cardiomyopathy type: dilated Qualified Code(s): I42.0 - Dilated cardiomyopathy (12) Grade III diastolic dysfunction: (13) Coronary artery disease: QUALIFIERS: Coronary Disease-Associated Artery/Lesion type: [place] artery [place] vs. transplanted heart: [place] heart Associated angina: without angina Qualified Code(s): I25.10 - Atherosclerotic heart disease of [place] coronary artery without angina pectoris (14) Left atrial enlargement: (15) Mitral regurgitation: QUALIFIERS: Cardiac valve disease etiology: nonrheumatic Q ualified Code(s): I34.0 - Nonrheumatic mitral (valve) insufficiency (16) Mild aortic stenosis: (17) Left bundle branch block: (18) QT prolongation: (19) Pulmonary hypertension: (20) Hypercholesterolemia: (21) Hypertension: QUALIFIERS: Hypertension type: primary hypertension Qualified Code(s): I10 - Essential (primary) hypertension (22) Obesity, Class II, BMI 35-39.9: PLAN: Plan 1. Continue therapy. 2. the episodic behavior disturbance when her family is in the room is most consistent with acting out. She was also doing this with nursing at admission but, this seems to have resolved. We are very limited on the medications that can be used to treat a behavior problem due to the QT prolongation. Will continue Klonopin at . Consider adding Cymbalta to the drug regimen if we continue to have problems. 3. Recheck lab on Friday 4. There are many co-morbid conditions that complicate management of this patient. Urine culture grew only yeast. Charges/Coding Visit Charges Inpatient E&M: 78190 Subs Hosp L2
[2025-04-04 11:21] VITALS: BMI 36.1
--- NOTE | 2025-04-04 13:23 | CASEMGMT ---
Social Work IDT met with patient, brother, JOANA and niece for Team meeting. Discussed patient's progress in PT/OT/ST/SN/MD. Educated to [facility] insurance with NRD 04/04 and continued stay is not guaranteed with each review. Pt is a SeraLift for transfers, though, needs tactile cues. Pt is agitated, fidgety and yells out in pain, at times. Pt's speech is impaired, but making improvements. Family is realistic to pt needing SNF care at time of DC. SW provided printed list of SNFs and ALs, as previously discussed with pt's sister. SW explained with pt's current needs, SNF is most appropriate as AL could not meet pt's needs. SW cautioned insurance does not have to provide advanced notice for DC. Family aware and will begin touring and researching SNFs. SW offered ongoing assistance with DC plan. Provided resources from [facility] After [facility] Stroke and Caregivers Guide to Stroke, along with Stroke Support Group. Will ReTeam weekly. Michelle Reaves CARBURETOR SPECIALIST PROFILE GRINDER TECHNICIAN
[2025-04-04 18:00] VITALS: BP 129/51; PULSE 76; RESP 18; TEMP 36.6; O2SAT 96
[2025-04-04] MEDS: Miconazole-7 Nitrate Cream 1 APPLIC VAGINAL (20:05)
[2025-04-04] MEDS: MELATONIN 3 MG TABLET PO (20:07)
[2025-04-04 21:24] VITALS: BMI 36.1
[2025-04-05] MEDS: Nystatin/Triamcin Cream Tube 1 APPLIC TOPICAL ×3 (04:56→21:29)
[2025-04-05 05:02] VITALS: BMI 35.9
[2025-04-05 05:12] VITALS: BP 119/59; PULSE 81; RESP 17; TEMP 36.1; O2SAT 96
[2025-04-05] MEDS: SACUBITRIL/VALSARTAN 24/26 MG TABLET 1 EACH PO ×2 (08:17→21:28)
[2025-04-05 08:18] VITALS: BP 119/59; PULSE 81
[2025-04-05] MEDS: Metoprolol(XL)Succ 25 MG Tablet PO (08:18)
[2025-04-05 09:33] VITALS: O2SAT 95
[2025-04-05 15:05] VITALS: BMI 35.9
--- NOTE | 2025-04-05 16:12 | PN_ITS ---
Subjective Subjective Afebrile Vital signs are stable and the blood pressure is within goal. Heart rate is within normal limits. Poor oral fluid intake yesterday. Fluid balance yesterday was -1445 and she was -280 overnight. She ate 75 to 100% of her breakfast this morning but refused lunch. Maintaining appropriate oxygen saturation on room air. I reviewed the therapy notes. Urine in the Barillas bag and tubing is pale yellow and clear. Still incontinent of stool. she has a Barillas catheter in ......was incontinent of urine prior to the Barillas. Barillas inserted to help with healing the excoriation of the perineum due to being wet. She tells me she has some pain in the RUE but, not much. Mild RODRIGUES. Denies SOB and CP. Denies N/V. Denies pain in the groin or in the perineum. she tells me that she is tired from doing therapy. Objective Data Objective Data Vital Signs: Vital Signs Temp Pulse Resp BP Pulse Ox O2 Del Method O2 Flow Rate 97.0 F L 81 17 119/59 L 95 Room Air 2 04/05/25 05:12 04/05/25 08:18 04/05/25 05:12 04/05/25 08:18 04/05/25 09:33 04/05/25 09:33 04/02/25 00:00 FiO2 21 03/30/25 22:34 Oxygen Flow Rate (L/min) 2 Oxygen Delivery Method Room Air Weight: 223 lb 5.252 oz Body Mass Index (BMI) 35.9 Intake & Output: Intake and Output for Last 24 Hours 04/03/25 04/04/25 04/05/25 23:59 23:59 23:59 Intake Total 1590 / 1590 780 / 780 270 / 270 Output Total 1225 / 1225 2225 / 2225 550 / 550 Balance 365 / 365 -1445 / -1445 -280 / -280 Lab / Micro Data 03/31/25 07:05 03/31/25 07:05 Micro: Microbiology 03/30/25 17:30 Urine, Clean Catch Urine Culture - Final Presumptive C albicans Physical Exam Const Constitutional Narrative: She was moaning and yelling a lot this AM when she is in the room by herself. When someone is in there she is usually quiet. She was not moaning when I was in the room and she was appropriate when talking if me. Not restless or fidgeting. Less articulate today and I am having more difficulty understanding her. Resp normal respiratory effort Resp Narrative: Lying nearly flat in bed with no resp distress. No JVD Effort and Inspection: Negative for tachypneic or respiratory distress Cardio regular rate, regular rhythm and no gallops GI normal to inspection, nondistended, normoactive bowel sounds, soft to palpation and non-tender GI Narrative: No guarding with palpation Extremity Extremity Narrative: No pitting edema of the legs. Skin Rashes: no rashes Assessment & Plan Assessment/Plan (1) Physical debility: (2) CVA (cerebral vascular accident): QUALIFIERS: CVA mechanism: unspecified Qualified Code(s): I63.9 - Cerebral infarction, unspecified (3) Left hemiplegia: (4) Aphasia complicating stroke: (5) Apraxia of speech: (6) Intertrigo of genitocrural region: (7) Intertrigo of skin fold of abdomen: (8) Urinary incontinence: QUALIFIERS: Urinary Incontinence type: urinary incontinence without sensory awareness Qualified Code(s): N39.42 - Incontinence without sensory awareness (9) Fecal incontinence: QUALIFIERS: Fecal incontinence type: full incontinence of feces Q ualified Code(s): R15.9 - Full incontinence of feces (10) Hypoxemia associated with sleep: (11) Cardiomyopathy: QUALIFIERS: Cardiomyopathy type: dilated Qualified Code(s): I42.0 - Dilated cardiomyopathy (12) Grade III diastolic dysfunction: (13) Coronary artery disease: QUALIFIERS: Coronary Disease-Associated Artery/Lesion type: [place] artery [place] vs. transplanted heart: [place] heart Associated angina: without angina Qualified Code(s): I25.10 - Atherosclerotic heart disease of [place] coronary artery without angina pectoris (14) Left atrial enlargement: (15) Mitral regurgitation: QUALIFIERS: Cardiac valve disease etiology: nonrheumatic Q ualified Code(s): I34.0 - Nonrheumatic mitral (valve) insufficiency (16) Mild aortic stenosis: (17) Left bundle branch block: (18) QT prolongation: (19) Pulmonary hypertension: (20) Hypercholesterolemia: (21) Hypertension: QUALIFIERS: Hypertension type: primary hypertension Qualified Code(s): I10 - Essential (primary) hypertension (22) Obesity, Class II, BMI 35-39.9: PLAN: Plan 1. Continue therapy 2. No change to the drug regimen today 3. CBC with differential and BMP in the a.m. 4. Voiding trial . Charges/Coding Visit Charges Inpatient E&M: 47538 Subs Hosp L1
[2025-04-05 17:34] VITALS: BP 118/57; PULSE 87; RESP 17; TEMP 36.6; O2SAT 99
[2025-04-05 20:19] VITALS: BMI 35.9
[2025-04-05] MEDS: Miconazole-7 Nitrate Cream 1 APPLIC VAGINAL (21:28)
[2025-04-05] MEDS: MELATONIN 3 MG TABLET PO (21:28)
[2025-04-06 04:35] LABS: Mucous, Urine 0 SEEN /hpf (<or=2+)
[2025-04-06 04:36] LABS: Color, Urine Yellow (Yellow); Glucose, Dipstick 250 mg/dl (Normal); Ketone-Dipstick Negative (Negative); Leukocyte Esterase-Dipstick 25 /ul (Negative); Nitrite-Dipstick Negative (Negative); Occult Blood-Urine 250 /ul (Negative); Protein-Dipstick 30 mg/dl (Negative); Specific Gravity, Urine 1.020 (1.002-1.030); Urine Bilirubin Dipstick Negative (Negative)
[2025-04-06 05:36] LABS: Red Blood Cells-Urine > 100 SEEN /hpf (0-5)
[2025-04-06 05:37] LABS: Squamous Epithelial Cells - UA 0-5 SEEN /hpf (5-10)
[2025-04-06 06:00] VITALS: BP 116/55; PULSE 85; RESP 15; TEMP 36.5; O2SAT 98; BMI 35.6
[2025-04-06] MEDS: Nystatin/Triamcin Cream Tube 1 APPLIC TOPICAL ×3 (06:34→20:24)
[2025-04-06 07:21] LABS: Hematocrit 38.8 % (37-47); Hemoglobin 13.3 g/dL (12.0-15.0); Immature Granulocytes Count 0.040 X10^3/uL (0.0-0.0); Mean Corp Hgb Conc 34.3 g/dL (32-36); Mean Corpuscular Volume 88.6 fL (81-99); Mean Platelet Vol. 10.2 fl (6.2-12.0); NRBC Flagged by Analyzer 0 % (0-5); Platelet Count 351 K/mm3 (150-450); RBC Distribution Width CV 13.4 % (11.6-14.6); RBC Distribution Width SD 43.2 fl (35.1-43.9); Red Blood Count 4.38 M/mm3 (4.2-5.4); White Blood Count 6.4 K/mm3 (4.4-11.0)
[2025-04-06] MEDS: SACUBITRIL/VALSARTAN 24/26 MG TABLET 1 EACH PO ×2 (08:25→20:24)
[2025-04-06 08:37] VITALS: BP 116/55; PULSE 85
[2025-04-06] MEDS: Metoprolol(XL)Succ 25 MG Tablet PO (08:37)
--- NOTE | 2025-04-06 09:42 | PCM.PROGNOTE ---
Subjective Subjective Afebrile but is getting Tylenol 1 g p.o. every 8 hours. The blood pressure over the past 24 hours has ranged from 116/55 to 119/59. Heart rate is within normal limits. appetite/intake is declining. Oral fluid intake for the past 2 days has been poor Per nursing she did not sleep well last night. Was digging at her crotch and pulling on the Barillas. Urine now has a pink tinge. A UA was sent last night and she had greater than 100 RBCs but only 0-5 WBCs. There was +1 bacteria. Ketones and nitrite were negative. All lab drawn this morning was personally reviewed. The white blood cell count is normal at 6.4 with an unremarkable differential. No left shift. Hemoglobin is 13.3 and platelets are within normal limits. BMP is still pending. Not coughing, no vomiting, last BM was on 04/04 (has told nursing the past few days that she has to use the toilet but, no BM. KUB at admission was unremarkable. No large stool accumulation. Objective Data Objective Data Vital Signs: Vital Signs Temp Pulse Resp BP Pulse Ox O2 Del Method O2 Flow Rate 97.7 F L 85 15 116/55 L 98 Room Air 2 04/06/25 06:00 04/06/25 08:37 04/06/25 06:00 04/06/25 08:37 04/06/25 06:00 04/06/25 06:00 04/02/25 00:00 FiO2 21 03/30/25 22:34 Oxygen Flow Rate (L/min) 2 Oxygen Delivery Method Room Air Weight: 222 lb 0.088 oz Body Mass Index (BMI) 35.6 Intake & Output: Intake and Output for Last 24 Hours 04/04/25 04/05/25 04/06/25 23:59 23:59 23:59 Intake Total 780 / 780 640 / 640 220 / 220 Output Total 2225 / 2225 800 / 800 Balance -1445 / -1445 -160 / -160 220 / 220 Lab / Micro Data 04/06/25 07:10 04/06/25 09:20 Labs: Laboratory Results - last 24 hr 04/06/25 04:15: Urine Color Yellow, Urine Clarity Cloudy, Urine pH 6.0, Ur Specific Atlas 1.020, Urine Protein 30 H, Urine Glucose (UA) 250 H, Urine Ketones Negative, Urine Occult Blood 250 H, Urine Nitrite Negative, Urine Bilirubin Negative, Urine Urobilinogen Normal, Ur Leukocyte Esterase 25 H, Urine RBC > 100 SEEN, Urine WBC 0-5 SEEN, Ur Squamous Epith Cells 0-5 SEEN, Ur Renal Epithelial Cell 0-5 SEEN, Urine Bacteria 1+, Urine Mucus 0 SEEN 04/06/25 07:10: WBC 6.4, RBC 4.38, Hgb 13.3, Hct 38.8, MCV 88.6, MCH 30.4, MCHC 34.3, RDW Std Deviation 43.2, RDW Coeff of Tonny 13.4, Plt Count 351, MPV 10.2, Immature Gran % (Auto) 0.600, Neut % (Auto) 56.6, Lymph % (Auto) 27.3, [place] % (Auto) 10.3 H, Eos % (Auto) 3.9, Baso % (Auto) 1.3 H, Absolute Neuts (auto) 3.6, Absolute Lymphs (auto) 1.74, Nucleated RBC % 0, Sodium Cancelled, Potassium Cancelled, Chloride Cancelled, Carbon Dioxide Cancelled, Anion Gap Cancelled, BUN Cancelled, Creatinine Cancelled, Estim Creat Clear Calc Cancelled, Est GFR (MDRD) Non-Af Cancelled, BUN/Creatinine Ratio Cancelled, Glucose Cancelled, Calcium Cancelled Micro: Microbiology 03/30/25 17:30 Urine, Clean Catch Urine Culture - Final Presumptive C albicans Physical Exam Const Constitutional Narrative: she is calm with me today and more appropriate. she worked well with PT today. She is afraid to stand. [employer] music seems to calm her down. She has pain in the R arm but, it is just a little bit. she is unable to tell me how much it hurts due to the expressive aphasia but, when I give her choices she tells me a little bit. She can not tell me her age or the month.........did not know the month even when I gave her choices. HEENT HEENT Narrative: No thrush Mouth: dry mucous membranes Neck supple Resp clear to auscultation bilaterally Cardio regular rate, regular rhythm and no gallops Cardio Narrative: No ectopy GI normal to inspection, nondistended, normoactive bowel sounds, soft to palpation and non-tender GI Narrative: No guarding with palpation Extremity Extremity Narrative: No pitting edema of the lower extremities Skin Skin Narrative: Intertrigo is much improved. Assessment & Plan Assessment/Plan (1) Physical debility: (2) CVA (cerebral vascular accident): QUALIFIERS: CVA mechanism: unspecified Qualified Code(s): I63.9 - Cerebral infarction, unspecified (3) Left hemiplegia: (4) Aphasia complicating stroke: (5) Apraxia of speech: (6) Intertrigo of genitocrural region: (7) Intertrigo of skin fold of abdomen: (8) Urinary incontinence: QUALIFIERS: Urinary Incontinence type: urinary incontinence without sensory awareness Qualified Code(s): N39.42 - Incontinence without sensory awareness (9) Fecal incontinence: QUALIFIERS: Fecal incontinence type: full incontinence of feces Qualified Code(s): R15.9 - Full incontinence of feces (10) Hypoxemia associated with sleep: (11) QT prolongation: (12) Pulmonary hypertension: (13) Hypercholesterolemia: (14) Hypertension: QUALIFIERS: Hypertension type: primary hypertension Qualified Code(s): I10 - Essential (primary) hypertension (15) Delirium: PLAN: Possibly due to medication +/- CVA. No obvious sign infection. PLAN: Plan 1. Continue therapy 2. Discontinue Klonopin. If the delirium improves but, she still has insomnia would consider low dose Ambien. 3. Hold Tylenol to see if she will have a fever.......... no obvious source of infection at this time. 4. Get a urine culture ........doubt infection, only a few a few WBC's but, lab reported 1+ bacteria. 5. Hold the next 2 doses of Lasix. Await the results of the BMP which is still pending at 10 AM in the morning. 6. Discontinue Mycelex 7. Will observe for a day or 2 off Klonopin to see how she does. She does have anxiety and likely some depression related to the stroke. Would consider a trial of low dose Duloxetine which will not affect the QT. Charges/Coding Visit Charges Inpatient E&M: 29811 [facility] Hosp L1
[2025-04-06 10:32] LABS: Anion Gap 14 (5-15); BUN 28 mg/dL (4-19); BUN/Creat Ratio 30.9 RATIO (10-20); Calcium,Total 9.3 mg/dL (7.6-11.0); Carbon Dioxide 20.5 mmol/L (21.0-32.0); Chloride 102 mmol/L (98-108); Estimated Creatinine Clearance 65.68 ml/min (50-250); Glucose 140 mg/dL (70-99); Potassium 3.6 mmol/L (3.3-5.1)
[2025-04-06 13:20] VITALS: PULSE 96; RESP 18; O2SAT 97
[2025-04-06 18:00] VITALS: BP 112/57; PULSE 90; RESP 16; TEMP 36.6; O2SAT 99
[2025-04-06 20:20] VITALS: PULSE 85; RESP 15; O2SAT 98; BMI 35.6
[2025-04-06] MEDS: Miconazole-7 Nitrate Cream 1 APPLIC VAGINAL (20:24)
[2025-04-06] MEDS: MELATONIN 3 MG TABLET PO (20:24)
[2025-04-07 06:00] VITALS: BP 106/57; PULSE 94; RESP 18; TEMP 36.4; O2SAT 98; BMI 35.3
[2025-04-07] MEDS: Nystatin/Triamcin Cream Tube 1 APPLIC TOPICAL ×3 (06:21→20:32)
--- NOTE | 2025-04-07 06:59 | NURSING ---
0600 hardin removed as per order and pt tolerated well. there was 250cc of darion, cloudy urine in hardin bag. light redness remains in the groin, labia areas. 30 day event monitor was brought in by viktoria yesterday and placed on this am
[2025-04-07 08:44] VITALS: PULSE 109
[2025-04-07] MEDS: Metoprolol(XL)Succ 25 MG Tablet PO (08:44)
[2025-04-07] MEDS: SACUBITRIL/VALSARTAN 24/26 MG TABLET 1 EACH PO ×2 (08:45→20:30)
[2025-04-07 08:54] VITALS: PULSE 109; RESP 18; TEMP 36.8; O2SAT 96
[2025-04-07 10:00] VITALS: O2SAT 96
--- NOTE | 2025-04-07 10:08 | PN_ITS ---
Subjective Subjective Afebrile VSS -heart rate has been increasing and over the past 18 hours has ranged from 85-109. Blood pressure over the past 24 hours has ranged from 106/57 to 116/55. Maintaining appropriate oxygen saturation on RA Oral intake - FOOD decreased from what it was at admission. FLUIDS poor Weight is down approximately 5 pounds since admission to rehab. Discussed with nursing -did not sleep well again last night. She is not yelling out or moaning continuously today and she was able to converse with me. She is frustrated at not being able to get her words out. She is better at saying yes and no when I ask her about sx........she can not come up with the words on her own. Eran was DC'd this morning. Reviewed the THERAPY notes-making progress Medication list reviewed. Lasix was placed on hold yesterday afternoon due to poor p.o. intake. She does not appear to be in any pain lying in bed. Only a little bit of pain in the R arm. No pain in the legs. Denies N/V/abd pain. Appetite is decreased. Denies pain in the mouth and painful swallowing. Denies pain in the perineal area and also denies vaginal itching or DC. Nursing has not observed any DC. 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 Objective Data Objective Data Vital Signs: Vital Signs Temp Pulse Resp BP Pulse Ox O2 Del Method O2 Flow Rate 98.2 F 109 H 18 106/57 L 96 Room Air 2 04/07/25 08:54 04/07/25 08:54 04/07/25 08:54 04/07/25 06:00 04/07/25 08:54 04/07/25 08:54 04/02/25 00:00 FiO2 21 03/30/25 22:34 Oxygen Flow Rate (L/min) 2 Oxygen Delivery Method Room Air Weight: 218 lb 11.177 oz Body Mass Index (BMI) 35.3 Intake & Output: Intake and Output for Last 24 Hours 04/05/25 04/06/25 04/07/25 23:59 23:59 23:59 Intake Total 640 / 640 580 / 580 300 / 300 Output Total 800 / 800 750 / 900 400 / 400 Balance -160 / -160 -170 / -320 -100 / -100 Lab / Micro Data 04/06/25 07:10 04/06/25 09:20 Labs: Laboratory Results - last 24 hr 04/06/25 09:20: Sodium 137, Potassium 3.6, Chloride 102, Carbon Dioxide 20.5 L, Anion Gap 14, BUN 28 H, Creatinine 0.90, Estim Creat Clear Calc 65.68, Est GFR (MDRD) Non-Af 67, BUN/Creatinine Ratio 30.9 H, Glucose 140 H, Calcium 9.3 Micro: Microbiology 03/30/25 17:30 Urine, Clean Catch Urine Culture - Final Presumptive C albicans Physical Exam Const alert and no apparent distress Constitutional Narrative: Frustrated at not being able to get her words out. General Appearance: cooperative HEENT HEENT Narrative: No thrush Mouth: dry mucous membranes Resp clear to auscultation bilaterally Resp Narrative: Not coughing with deep breaths. Effort and Inspection: Negative for tachypneic or respiratory distress Cardio regular rate, regular rhythm and no gallops Cardio Narrative: GI normal to inspection, nondistended, normoactive bowel sounds, soft to palpation and non-tender GI Narrative: No guarding with palpation Extremity no calf tenderness Extremity Narrative: Arthur wrap's are in place and properly applied. No pitting edema. Skin Rashes: no rashes Psych Psych Narrative: Delirium seems to have resolved....suspect this was due to Klonopin. Appetite is decreasing and she is still not sleeping at night. Admits to feeling somewhat depressed/frustrated. Assessment & Plan Assessment/Plan (1) Physical debility: (2) CVA (cerebral vascular accident): QUALIFIERS: CVA mechanism: unspecified Qualified Code(s): I63.9 - Cerebral infarction, unspecified (3) Left hemiplegia: (4) Aphasia complicating stroke: (5) Apraxia of speech: (6) Intertrigo of genitocrural region: (7) Intertrigo of skin fold of abdomen: (8) Urinary incontinence: QUALIFIERS: Urinary Incontinence type: urinary incontinence without sensory awareness Qualified Code(s): N39.42 - Incontinence without sensory awareness (9) Fecal incontinence: QUALIFIERS: Fecal incontinence type: full incontinence of feces Q ualified Code(s): R15.9 - Full incontinence of feces (10) Hypoxemia associated with sleep: (11) QT prolongation: (12) Pulmonary hypertension: (13) Hypercholesterolemia: (14) Hypertension: QUALIFIERS: Hypertension type: primary hypertension Qualified Code(s): I10 - Essential (primary) hypertension (15) Delirium: PLAN: Possibly due to medication +/- CVA. No obvious sign infection. (16) Insomnia: QUALIFIERS: Insomnia type: unspecified Qualified Code(s): G47.00 - Insomnia, unspecified (17) Depression: QUALIFIERS: Depression Type: reactive depression Qualified Code(s): F32.9 - Major depressive disorder, single episode, unspecified (18) Dehydration: (19) Low back pain: PLAN: Plan 1. Continue therapy 2. Start duloxetine 20 mg p.o. every morning -this will not cause QT prolongation. 3. Try Ambien 5 mg at bedtime for insomnia 4. Hold Lasix today and hydrate with NS. Encouraged her to increase her fluid intake. 5. Restart Lasix tomorrow or Friday but, restart at once a day. 6. Restart scheduled Tylenol of back pain and also start arthritis pain cream TID PRN to the LS spine for pain not controlled with Tylenol. Charges/Coding Visit Charges Inpatient E&M: 57983 Subs Hosp L1
--- NOTE | 2025-04-07 10:41 | NURSING ---
New order for normal saline 75ml/hr, IV started with 20g in right wrist. flushes well. pt tolerated procedure well.
[2025-04-07] MEDS: 0.9% Normal Saline (1000mL) 1,000 ML 75 ML IV (11:15)
[2025-04-07 20:30] VITALS: PULSE 87; RESP 18; O2SAT 94; BMI 35.3
[2025-04-07] MEDS: MELATONIN 3 MG TABLET PO (20:30)
[2025-04-08] MEDS: 0.9% Normal Saline (1000mL) 1,000 ML 75 ML IV (01:17)
[2025-04-08 05:16] VITALS: BP 108/33; PULSE 75; RESP 17; TEMP 36.3; O2SAT 97; BMI 35.5
[2025-04-08 07:51] VITALS: PULSE 75
[2025-04-08] MEDS: SACUBITRIL/VALSARTAN 24/26 MG TABLET 1 EACH PO ×2 (07:51→20:49)
[2025-04-08] MEDS: Metoprolol(XL)Succ 25 MG Tablet PO (07:51)
[2025-04-08] MEDS: Nystatin/Triamcin Cream Tube 1 APPLIC TOPICAL ×3 (07:52→20:46)
[2025-04-08] MEDS: 0.9% Saline Lock 10 ML Syringe IV (07:52)
[2025-04-08 08:12] LABS: Anion Gap 13 (5-15); BUN 18 mg/dL (4-19); BUN/Creat Ratio 25.9 RATIO (10-20); Calcium,Total 9.0 mg/dL (7.6-11.0); Carbon Dioxide 21.6 mmol/L (21.0-32.0); Chloride 104 mmol/L (98-108); Estimated Creatinine Clearance 73.57 ml/min (50-250); Glucose 118 mg/dL (70-99); Potassium 3.9 mmol/L (3.3-5.1)
--- NOTE | 2025-04-08 09:36 | CASEMGMT ---
Addendum entered by Michelle Reaves 04/08/25 11:17: [facility] cannot accept as they are O[facility] and pt does not have any OON benefits, Original Note: Social Work SW received secure email from niece with additional questions about SNFs. SW answered questions pertaining to skilled vs nonskilled and insurance coverage. Niece provided SNF choices: 1-[facility], 2-[facility], 3-[facility], 4-[facility]. SW sent referrals via [facility]. Michelle Reaves COVER MAKER SURVEY RESEARCHER
[2025-04-08 11:46] VITALS: BP 146/70; PULSE 94; RESP 16; TEMP 36.7; O2SAT 97
--- NOTE | 2025-04-08 12:03 | EKG12_ITS ---
Test Reason : cp Blood Pressure : */* mmHG Vent. Rate : 92 BPM Atrial Rate : 92 BPM P-R Int : 164 ms QRS Dur : 176 ms QT Int : 436 ms P-R-T Axes : 0 -11 172 degrees QTcB Int : 539 ms Sinus rhythm with Premature atrial complexes Left bundle branch block Abnormal ECG When compared with ECG of 31-Mar-2025 05:09, T wave inversion less evident in Inferior leads Confirmed by GERARDO ESCOBEDO ([id number]), marketing editor ROHAN LIMA ([id number]) on 04/12/2025 6:36:11 AM Referred By: Confirmed By: GERARDO ESCOBEDO
--- NOTE | 2025-04-08 12:09 | PN_ITS ---
Subjective Subjective Afebrile Blood pressure has ranged from 106/57-146/70........this is current and she is c/o chest pain/heartburn associated with Nausea and mild epigastric pain. Current heart rate is increased at 94. Denies SOB. did well with Therapy today. Was asymptomatic prior to about 11:30 today. She has a hx of CHF/CAD/valvular heart disease and diastolic dysfunction. She has known LBBB. BMP today shows a sodium of 138 and a potassium of 3.9. The BUN is 18 with a creatinine of 0.69, down from 0.9 on 04/06/2025 with some IV fluids. Poor oral fluid intake yesterday but, 1500 in IV fluids overnight. She was continent of urine and stool this morning when working with PT. No significant PVR's since the Barillas was removed yesterday. Objective Data Objective Data Vital Signs: Vital Signs Temp Pulse Resp BP Pulse Ox O2 Del Method O2 Flow Rate 98.1 F 94 16 146/70 H 97 Room Air 2 04/08/25 11:46 04/08/25 11:46 04/08/25 11:46 04/08/25 11:46 04/08/25 11:46 04/08/25 11:46 04/02/25 00:00 FiO2 21 03/30/25 22:34 Oxygen Flow Rate (L/min) 2 Oxygen Delivery Method Room Air Weight: 220 lb 3.869 oz Body Mass Index (BMI) 35.5 Intake & Output: Intake and Output for Last 24 Hours 04/06/25 04/07/25 04/08/25 23:59 23:59 23:59 Intake Total 580 / 580 660 / 660 1500 / 1500 Output Total 750 / 900 400 / 400 200 / 200 Balance -170 / -320 260 / 260 1300 / 1300 Lab / Micro Data 04/06/25 07:10 04/08/25 07:18 Labs: Laboratory Results - last 24 hr 04/08/25 07:18: Sodium 138, Potassium 3.9, Chloride 104, Carbon Dioxide 21.6, Anion Gap 13, BUN 18, Creatinine 0.69 L, Estim Creat Clear Calc 73.57, Est GFR (MDRD) Non-Af 91, BUN/Creatinine Ratio 25.9 H, Glucose 118 H, Calcium 9.0 Micro: Microbiology 04/06/25 04:15 Urine Catheter - Catheter Urine Culture - Preliminary Yeast Like Organism 03/30/25 17:30 Urine, Clean Catch Urine Culture - Final Presumptive C albicans Physical Exam Const Constitutional Narrative: Appears to be in distress. Has her hand placed over the upper chest. Answers yes when I ask about heartburn and nausea and when I ask about epigastric pain she said little. Said no to chest pain and palpitations. Resp Resp Narrative: Breathing is not labored and she is not tachypneic. Lungs are CTA. RR is WNL. Cardio regular rate, regular rhythm and no gallops Cardio Narrative: rare early beat. GI soft to palpation GI Narrative: mild pain with palpation of the epigastric area. ND, no guarding Extremity no calf tenderness Extremity Narrative: No pitting edema. ARAM wraps in place. Assessment & Plan Assessment/Plan (1) Chest pain: QUALIFIERS: Chest pain type: unspecified Qualified Code(s): R07.9 - Chest pain, unspecified (2) Physical debility: (3) CVA (cerebral vascular accident): QUALIFIERS: CVA mechanism: unspecified Qualified Code(s): I63.9 - Cerebral infarction, unspecified (4) Left hemiplegia: (5) Aphasia complicating stroke: (6) Apraxia of speech: (7) Intertrigo of genitocrural region: (8) Intertrigo of skin fold of abdomen: (9) Urinary incontinence: QUALIFIERS: Urinary Incontinence type: urinary incontinence without sensory awareness Qualified Code(s): N39.42 - Incontinence without sensory awareness (10) Fecal incontinence: QUALIFIERS: Fecal incontinence type: full incontinence of feces Q ualified Code(s): R15.9 - Full incontinence of feces (11) Hypoxemia associated with sleep: (12) QT prolongation: (13) Pulmonary hypertension: (14) Hypercholesterolemia: (15) Hypertension: QUALIFIERS: Hypertension type: primary hypertension Qualified Code(s): I10 - Essential (primary) hypertension (16) Delirium: PLAN: Possibly due to medication +/- CVA. No obvious sign infection. (17) Insomnia: QUALIFIERS: Insomnia type: unspecified Qualified Code(s): G47.00 - Insomnia, unspecified (18) Depression: QUALIFIERS: Depression Type: reactive depression Qualified Code(s): F32.9 - Major depressive disorder, single episode, unspecified (19) Dehydration: (20) Low back pain: PLAN: Plan 1. Hold therapy for now and evaluate for ischemia........EKG shows a left bundle branch block and when compared to an EKG done at the previous hospital on 03/23/2025 there is no change other than she has 1 PAC now. Blood pressure and heart rate are both up so I suspect she is having some discomfort. Severe expressive aphasia makes it difficult to evaluate. Will give a GI cocktail now since she says yes to heartburn to see if this helps. Chest pain panel has been ordered with serial troponins. Will give a dose of Zofran (a low risk medication for QT prolongation) to see if nausea improves. If no relief of the heartburn with a GI cocktail we will try sublingual nitroglycerin. Charges/Coding Visit Charges Inpatient E&M: 45481 Subs Hosp L2
[2025-04-08] MEDS: Lidocaine 2% Viscous15 ML UDC 15 ML PO (12:48)
[2025-04-08 13:33] LABS: Troponin T High Sensitivity 23 ng/L (<=14)
[2025-04-08 14:50] VITALS: BMI 35.5
[2025-04-08 16:56] LABS: Troponin T High Sens 2 HR 24 ng/L (<=14)
[2025-04-08 17:54] VITALS: BP 124/59; PULSE 89; RESP 16; TEMP 36.8; O2SAT 94
[2025-04-08 18:17] LABS: Troponin T High Sens 4 HR 25 ng/L (<=14)
[2025-04-08 20:30] VITALS: PULSE 89; RESP 16; O2SAT 94; BMI 35.5
[2025-04-08] MEDS: MELATONIN 3 MG TABLET PO (20:48)
[2025-04-09] MEDS: Nystatin/Triamcin Cream Tube 1 APPLIC TOPICAL ×3 (05:26→19:59)
[2025-04-09 05:28] VITALS: BP 112/62; PULSE 83; RESP 16; TEMP 36.4; O2SAT 98; BMI 35.4
--- NOTE | 2025-04-09 08:30 | NURSING ---
Patient very alert this AM and reported she feels much better. Patient able to talk more to this nurse and expressed she would like to get up in her chair and task completed and patient tolerated well. Call carty in place.
[2025-04-09] MEDS: SACUBITRIL/VALSARTAN 24/26 MG TABLET 1 EACH PO ×2 (09:01→20:00)
[2025-04-09 09:04] VITALS: BP 129/52; PULSE 100
[2025-04-09] MEDS: Metoprolol(XL)Succ 25 MG Tablet PO (09:04)
[2025-04-09 13:09] VITALS: BMI 35.4
[2025-04-09] MEDS: 0.9% Saline Lock 10 ML Syringe IV (17:17)
[2025-04-09 17:56] VITALS: BP 106/52; PULSE 95; RESP 16; TEMP 36.3; O2SAT 95
[2025-04-09] MEDS: MELATONIN 3 MG TABLET PO (20:00)
[2025-04-10] MEDS: Nystatin/Triamcin Cream Tube 1 APPLIC TOPICAL ×3 (05:09→20:10)
[2025-04-10 05:55] VITALS: BP 117/67; PULSE 86; RESP 16; TEMP 36.4; O2SAT 94
[2025-04-10 05:57] VITALS: BMI 35.4
[2025-04-10 06:00] VITALS: BMI 35.4
[2025-04-10] MEDS: SACUBITRIL/VALSARTAN 24/26 MG TABLET 1 EACH PO ×2 (07:37→20:14)
[2025-04-10 07:40] VITALS: BP 116/54; PULSE 89
[2025-04-10] MEDS: Metoprolol(XL)Succ 25 MG Tablet PO (07:40)
--- NOTE | 2025-04-10 09:35 | PN_ITS ---
Subjective Subjective Afebrile VSS -blood pressure over the past 48 hours has ranged from 112/62 to 146/70. (this is an outlier and all other BP's are within goal. Heart rate is within normal limits and has ranged from 83-100 Maintaining appropriate oxygen saturation on RA Oral intake - FOOD has declined significantly since admission. Recently has frequently been 25 to 49%. Weight is decreasing. FLUIDS better for the past 48 hours. Discussed with nursing - no problems that need addressed. Nursing is able to stand and pivot her now. There were no issues overnight. Reviewed the THERAPY notes Medication list reviewed. No recurrence of chest pain/heartburn since she was started on Protonix Friday. She has not required any additional Zofran. Troponins did not trend. Denies cephalgia, lightheadedness, chest pain, shortness of breath, palpitations, nausea/vomiting/abdominal pain, dysuria and calf pain. Objective Data Objective Data Vital Signs: Vital Signs Temp Pulse Resp BP Pulse Ox O2 Del Method O2 Flow Rate 97.6 F L 89 16 116/54 L 94 Room Air 2 04/10/25 05:55 04/10/25 07:40 04/10/25 05:55 04/10/25 07:40 04/10/25 05:55 04/10/25 05:55 04/02/25 00:00 FiO2 21 03/30/25 22:34 Oxygen Flow Rate (L/min) 2 Oxygen Delivery Method Room Air Weight: 219 lb 6 oz Body Mass Index (BMI) 35.4 Intake & Output: Intake and Output for Last 24 Hours 04/08/25 04/09/25 04/10/25 23:59 23:59 23:59 Intake Total 1700 / 1790 1490 / 1490 250 / 250 Output Total 200 / 200 Balance 1500 / 1590 1490 / 1490 250 / 250 Lab / Micro Data 04/06/25 07:10 04/08/25 07:18 Micro: Microbiology 04/06/25 04:15 Urine Catheter - Catheter Urine Culture - Final Yeast, not Gladis albicans 03/30/25 17:30 Urine, Clean Catch Urine Culture - Final Presumptive C albicans Physical Exam Resp Resp Narrative: Breathing is not labored and she is not tachypneic. Lungs are CTA. RR is WNL. Cardio regular rate, regular rhythm and no gallops Cardio Narrative: rare early beat. GI normal to inspection, nondistended, normoactive bowel sounds and soft to palpation GI Narrative: No guarding with palpation Extremity no calf tenderness Extremity Narrative: No pitting edema. ARAM wraps in place. Assessment & Plan Assessment/Plan (1) Physical debility: (2) CVA (cerebral vascular accident): QUALIFIERS: CVA mechanism: unspecified Qualified Code(s): I63.9 - Cerebral infarction, unspecified (3) Left hemiplegia: (4) Aphasia complicating stroke: (5) Apraxia of speech: (6) Intertrigo of genitocrural region: (7) Intertrigo of skin fold of abdomen: (8) Urinary incontinence: QUALIFIERS: Urinary Incontinence type: urinary incontinence without sensory awareness Qualified Code(s): N39.42 - Incontinence without sensory awareness (9) Fecal incontinence: QUALIFIERS: Fecal incontinence type: full incontinence of feces Q ualified Code(s): R15.9 - Full incontinence of feces (10) Hypoxemia associated with sleep: (11) QT prolongation: (12) Pulmonary hypertension: (13) Hypercholesterolemia: (14) Hypertension: QUALIFIERS: Hypertension type: primary hypertension Qualified Code(s): I10 - Essential (primary) hypertension (15) Depression: QUALIFIERS: Depression Type: reactive depression Qualified Code(s): F32.9 - Major depressive disorder, single episode, unspecified PLAN: Plan 1. Continue therapy Charges/Coding Visit Charges Inpatient E&M: 26178 Subs Hosp L1
[2025-04-10 13:45] VITALS: BMI 35.4
[2025-04-10] MEDS: 0.9% Saline Lock 10 ML Syringe IV ×2 (17:31→20:17)
[2025-04-10 18:00] VITALS: BP 108/55; PULSE 76; RESP 18; TEMP 36.6; O2SAT 93
[2025-04-10 20:07] VITALS: BMI 35.4
[2025-04-10] MEDS: MELATONIN 3 MG TABLET PO (20:14)
[2025-04-10 20:40] VITALS: PULSE 76; RESP 16
[2025-04-11 05:15] VITALS: BP 111/69; PULSE 90; RESP 15; TEMP 36.3; O2SAT 99; BMI 35.0
[2025-04-11] MEDS: Nystatin/Triamcin Cream Tube 1 APPLIC TOPICAL ×3 (05:21→20:02)
[2025-04-11 08:20] VITALS: BP 111/69; PULSE 90
[2025-04-11] MEDS: Metoprolol(XL)Succ 25 MG Tablet PO (08:20)
[2025-04-11] MEDS: Arthritis Pain Compound 60 CLICK TUBE TOPICAL (08:21)
[2025-04-11] MEDS: SACUBITRIL/VALSARTAN 24/26 MG TABLET 1 EACH PO ×2 (08:37→20:02)
[2025-04-11 09:36] VITALS: PULSE 74; RESP 17
[2025-04-11 14:31] VITALS: BMI 35.0
[2025-04-11 17:33] VITALS: BP 137/76; PULSE 85; RESP 17; TEMP 36.6; O2SAT 96
[2025-04-11 19:23] VITALS: BMI 35.0
[2025-04-11] MEDS: 0.9% Saline Lock 10 ML Syringe IV (19:57)
[2025-04-11 20:00] VITALS: PULSE 85; RESP 16; O2SAT 96
[2025-04-11] MEDS: MELATONIN 3 MG TABLET PO (20:02)
[2025-04-12 02:26] VITALS: BMI 35.0
[2025-04-12] MEDS: Nystatin/Triamcin Cream Tube 1 APPLIC TOPICAL ×3 (04:51→23:04)
[2025-04-12 06:00] VITALS: BP 120/65; PULSE 98; RESP 16; TEMP 36.6; O2SAT 98; BMI 34.7
[2025-04-12 08:20] VITALS: PULSE 98
[2025-04-12] MEDS: Metoprolol(XL)Succ 25 MG Tablet PO (08:20)
[2025-04-12] MEDS: SACUBITRIL/VALSARTAN 24/26 MG TABLET 1 EACH PO ×2 (08:20→23:03)
--- NOTE | 2025-04-12 09:50 | PCM.PROGNOTE ---
Subjective Subjective Brittani was seen on team rounds today. Her family was present in the room for TEAM rounds. All questions were answered to their satisfaction. Afebrile VSS -blood pressure is well-controlled. No hypotension. Heart rate is ranged from 74-98 over the past 24 hours. Maintaining appropriate oxygen saturation on RA Oral intake - FOOD improved over the end of last week. FLUIDS fair.....she will drink when reminded to drink and offered water. Weight is down approximately 8 pounds since admission to rehab. Discussed with nursing - no problems that need addressed. Continues to be incontinent of urine and stool. Occasionally able to use bedside commode without fecal incontinence. Reviewed the THERAPY notes Medication list reviewed. Denies cephalgia, lightheadedness, chest pain, nausea, abdominal pain, dysuria and calf pain. Sleeping better at night. Denies mouth pain or painful swallowing. Objective Data Objective Data Vital Signs: Vital Signs Temp Pulse Resp BP Pulse Ox O2 Del Method O2 Flow Rate 97.8 F 98 16 120/65 98 Room Air 2 04/12/25 06:00 04/12/25 08:20 04/12/25 06:00 04/12/25 06:00 04/12/25 06:00 04/12/25 06:00 04/02/25 00:00 FiO2 21 03/30/25 22:34 Oxygen Flow Rate (L/min) 2 Oxygen Delivery Method Room Air Weight: 215 lb 9.793 oz Body Mass Index (BMI) 34.7 Intake & Output: Intake and Output for Last 24 Hours 04/10/25 04/11/25 04/12/25 23:59 23:59 23:59 Intake Total 1080 / 1080 1090 / 1090 250 / 250 Balance 1080 / 1080 1090 / 1090 250 / 250 Lab / Micro Data 04/06/25 07:10 04/08/25 07:18 Micro: Microbiology 04/06/25 04:15 Urine Catheter - Catheter Urine Culture - Final Yeast, not Gladis albicans 03/30/25 17:30 Urine, Clean Catch Urine Culture - Final Presumptive C albicans Physical Exam Const alert and no apparent distress Constitutional Narrative: sitting up in the therapy room. Looks comfortable. Speech is more crisp. Still with word finding difficulties. General Appearance: cooperative HEENT HEENT Narrative: she will drink when offered fluids.......can't ask for fluids yet. Mouth: dry mucous membranes Resp clear to auscultation bilaterally Resp Narrative: no cough Effort and Inspection: Negative for tachypneic Cardio regular rhythm Cardio Narrative: resting HR is increased today........suspect due to dehydration. GI normal to inspection, nondistended, normoactive bowel sounds, soft to palpation and non-tender GI Narrative: Having regular BM's.. Denies epigastric pain with palpation. Extremity no calf tenderness Extremity Narrative: No pitting edema of the LE's Skin Skin Narrative: She has aq lot of ecchymosis on the legs......some of this looks new. PLT's have been normal. she is on Enoxaparin for DVT prophylaxis. Psych Psych Narrative: Denies feeling depressed but, she is feeling sad. Not tearful. sometimes has no appetite and at other times eats 75-100%. Sleeping better at night with Ambien 5 mg. Started on Duloxetine last . tolerating without any adverse side effects so far. Assessment & Plan Assessment/Plan (1) Physical debility: (2) CVA (cerebral vascular accident): QUALIFIERS: CVA mechanism: unspecified Qualified Code(s): I63.9 - Cerebral infarction, unspecified (3) Left hemiplegia: (4) Aphasia complicating stroke: (5) Apraxia of speech: (6) Intertrigo of genitocrural region: (7) Intertrigo of skin fold of abdomen: (8) Urinary incontinence: QUALIFIERS: Urinary Incontinence type: urinary incontinence without sensory awareness Qualified Code(s): N39.42 - Incontinence without sensory awareness (9) Fecal incontinence: QUALIFIERS: Fecal incontinence type: full incontinence of feces Qualified Code(s): R15.9 - Full incontinence of feces (10) Hypoxemia associated with sleep: (11) QT prolongation: (12) Pulmonary hypertension: (13) Hypercholesterolemia: (14) Hypertension: QUALIFIERS: Hypertension type: primary hypertension Qualified Code(s): I10 - Essential (primary) hypertension (15) Depression: QUALIFIERS: Depression Type: reactive depression Qualified Code(s): F32.9 - Major depressive disorder, single episode, unspecified PLAN: Plan 1. Continue therapy 2. Repeat a BMP or Friday. 3. Check a PT/PTT today. Continue Lovenox for DVT prophylaxis. Why does she have new bruising on her legs? Will discuss with nursing if the PT/PTT are normal. Charges/Coding Visit Charges Inpatient E&M: 08414 Subs Hosp L2
--- NOTE | 2025-04-12 11:26 | CASEMGMT ---
Social Work All 4 SNFs denied d/t insurance. SW reviewed SNF list and updated with insurance website. Printed new list of options to provide to family at Team meeting this date. Michelle Reaves FIRE RANGE TECHNICIAN METAL BONDING PRESS OPERATOR
[2025-04-12 11:47] LABS: Prothrombin Time (Protime)PT. 14.6 SECONDS (11.7-14.9)
[2025-04-12 11:48] LABS: Partial Thromboplast Time 31.3 Seconds (24.1-36.2)
[2025-04-12 13:32] VITALS: BMI 34.7
--- NOTE | 2025-04-12 14:21 | CASEMGMT ---
Team meeting held on this date with pt and pt's sister and niece in attendance. PT/OT/ST/SN/ provided updates on pts status over the last week. Pt is progressing well with therapy. SW updated pt and family that insurance has approved continued stay with next review on 04/18. Family made aware that continued stay is not guaranteed at that time. Pt was living at home alone and independently prior to stroke. Pt will likely not be ready to return to independence when rehab stay is complete. Pt and family are aware of need for SNF and have reviewed list of options and made choices. Family notified that [facility], [facility] and [facility] are unable to accept however, [facility] can accept. Pt and family agreeable to placement at [facility]. SW discussed with pt that pt is receiving maximum benefit while at level of care and that pt will move to [facility] when insurance no longer covers inpatient rehab stay. SW also updated pt's family that precert for SNF will be started at the appropriate time, but there is no guarantee of insurance coverage. SW explained private pay vs Medicaid coverage if pt is denied SNF coverage by insurance. Family indicates pt does not have finances to pay for SNF. SW will make referral to Riri at [facility] to discuss Medicaid eligibility. Riri to reach out to pt's niece Rachna Zhou and Rachna is agreeable to this. Treatment plan to continue at this time as pt continues to benefit from 3 hours of Inpatient Rehabilitation a day. SW to continue to follow for discharge planning. MARILEE Restrepo
[2025-04-12 18:00] VITALS: BP 118/66; PULSE 102; RESP 17; TEMP 36.6; O2SAT 95
[2025-04-12 22:00] VITALS: PULSE 53; RESP 16; O2SAT 94
[2025-04-12 22:45] VITALS: BP 120/61; PULSE 98; RESP 20; TEMP 36.5; O2SAT 96
[2025-04-12] MEDS: 0.9% Saline Lock 10 ML Syringe IV (23:01)
[2025-04-12] MEDS: MELATONIN 3 MG TABLET PO (23:02)
[2025-04-13 04:35] VITALS: BMI 34.7
[2025-04-13] MEDS: Nystatin/Triamcin Cream Tube 1 APPLIC TOPICAL ×3 (05:41→19:55)
[2025-04-13] MEDS: Arthritis Pain Compound 60 CLICK TUBE TOPICAL (05:42)
[2025-04-13 06:00] VITALS: BP 125/60; PULSE 100; RESP 16; TEMP 36.4; O2SAT 98; BMI 34.6
[2025-04-13 07:44] VITALS: BP 125/60; PULSE 100
[2025-04-13] MEDS: Metoprolol(XL)Succ 25 MG Tablet PO (07:44)
[2025-04-13] MEDS: SACUBITRIL/VALSARTAN 24/26 MG TABLET 1 EACH PO ×2 (07:45→19:54)
[2025-04-13 11:46] VITALS: BMI 34.6
[2025-04-13 17:31] VITALS: BP 144/57; PULSE 103; RESP 17; TEMP 36.6; O2SAT 94
[2025-04-13 19:38] VITALS: RESP 16; O2SAT 94
[2025-04-13] MEDS: 0.9% Saline Lock 10 ML Syringe IV (19:44)
[2025-04-13 19:45] VITALS: BMI 34.6
[2025-04-13] MEDS: MELATONIN 3 MG TABLET PO (19:55)
[2025-04-14] MEDS: Nystatin/Triamcin Cream Tube 1 APPLIC TOPICAL ×3 (04:45→20:24)
[2025-04-14 05:21] VITALS: BMI 34.6
[2025-04-14 05:23] VITALS: BP 104/54; PULSE 94; RESP 15; TEMP 36.6; O2SAT 94
[2025-04-14 07:48] VITALS: BP 104/54; PULSE 94
[2025-04-14] MEDS: Metoprolol(XL)Succ 25 MG Tablet PO (07:48)
[2025-04-14] MEDS: SACUBITRIL/VALSARTAN 24/26 MG TABLET 1 EACH PO ×2 (07:51→20:24)
[2025-04-14] MEDS: 0.9% Saline Lock 10 ML Syringe IV (07:57)
[2025-04-14 10:23] VITALS: BMI 34.6
--- NOTE | 2025-04-14 15:49 | PN_ITS ---
Subjective Subjective Afebrile VSS - Maintaining appropriate oxygen saturation on RA Oral intake - FOOD appetite and intake are inconsistent. Weight is down approximately 10 to 12 pounds since admission to rehab. FLUIDS usually fair Discussed with nursing - no problems that need addressed Reviewed the THERAPY notes Medication list reviewed. Denies CP, SOB, N/V/heartburn, dysuria. Speaking more and speech is more crisp. I can understand her. Still with aphasia/apraxia. Objective Data Objective Data Vital Signs: Vital Signs Temp Pulse Resp BP Pulse Ox O2 Del Method O2 Flow Rate 97.9 F 94 15 104/54 L 94 Room Air 2 04/14/25 05:23 04/14/25 07:48 04/14/25 05:23 04/14/25 07:48 04/14/25 05:23 04/14/25 05:23 04/02/25 00:00 FiO2 21 03/30/25 22:34 Oxygen Flow Rate (L/min) 2 Oxygen Delivery Method Room Air Weight: 215 lb 6.266 oz Body Mass Index (BMI) 34.6 Intake & Output: Intake and Output for Last 24 Hours 04/12/25 04/13/25 04/14/25 23:59 23:59 23:59 Intake Total 1190 / 1190 1600 / 1600 640 / 640 Output Total 150 / 150 Balance 1190 / 1190 1450 / 1450 640 / 640 Lab / Micro Data 04/15/25 08:00 04/15/25 08:00 Micro: Microbiology 04/06/25 04:15 Urine Catheter - Catheter Urine Culture - Final Yeast, not Gladis albicans 03/30/25 17:30 Urine, Clean Catch Urine Culture - Final Presumptive C albicans Physical Exam Const alert and no apparent distress General Appearance: cooperative HEENT Mouth: dry mucous membranes Resp clear to auscultation bilaterally Effort and Inspection: Negative for tachypneic Cardio regular rate, regular rhythm and no gallops Cardio Narrative: No ectopy GI normal to inspection, nondistended, normoactive bowel sounds, soft to palpation and non-tender GI Narrative: No guarding with palpation Extremity no calf tenderness Extremity Narrative: No pitting edema of the distal lower extremity. Skin Skin Narrative: Multiple areas of ecchymosis on her lower extremities secondary to using the Colette-Lift Psych Psych Narrative: Making good eye contact with me when we are speaking. Not tearful. Not restless or fidgety in the bed. Cooperative and pleasant. Assessment & Plan Assessment/Plan (1) Physical debility: (2) CVA (cerebral vascular accident): QUALIFIERS: CVA mechanism: unspecified Qualified Code(s): I63.9 - Cerebral infarction, unspecified (3) Left hemiplegia: (4) Aphasia complicating stroke: (5) Apraxia of speech: (6) Intertrigo of genitocrural region: (7) Intertrigo of skin fold of abdomen: (8) Urinary incontinence: QUALIFIERS: Urinary Incontinence type: urinary incontinence without sensory awareness Qualified Code(s): N39.42 - Incontinence without sensory awareness (9) Fecal incontinence: QUALIFIERS: Fecal incontinence type: full incontinence of feces Q ualified Code(s): R15.9 - Full incontinence of feces (10) Hypoxemia associated with sleep: (11) QT prolongation: (12) Pulmonary hypertension: (13) Hypercholesterolemia: (14) Hypertension: QUALIFIERS: Hypertension type: primary hypertension Qualified Code(s): I10 - Essential (primary) hypertension (15) Depression: QUALIFIERS: Depression Type: reactive depression Qualified Code(s): F32.9 - Major depressive disorder, single episode, unspecified PLAN: Plan 1. Continue therapy 2. Check a CBC and a BMP in the a.m. Charges/Coding Visit Charges Inpatient E&M: 98094 Subs Hosp L1
[2025-04-14 17:50] VITALS: BP 142/74; PULSE 99; RESP 16; TEMP 36.6; O2SAT 96
[2025-04-14 20:00] VITALS: PULSE 99; RESP 16; O2SAT 96; BMI 34.6
[2025-04-14] MEDS: MELATONIN 3 MG TABLET PO (20:25)
[2025-04-15 05:07] VITALS: BMI 34.4
[2025-04-15 05:58] VITALS: BP 107/52; PULSE 84; RESP 16; TEMP 36.1; O2SAT 98
[2025-04-15 08:09] LABS: Hematocrit 37.4 % (37-47); Hemoglobin 13.1 g/dL (12.0-15.0); Mean Corp Hgb Conc 35.0 g/dL (32-36); Mean Corpuscular Volume 87.2 fL (81-99); Mean Platelet Vol. 10.8 fl (6.2-12.0); Platelet Count 331 K/mm3 (150-450); RBC Distribution Width CV 14.2 % (11.6-14.6); RBC Distribution Width SD 44.6 fl (35.1-43.9); Red Blood Count 4.29 M/mm3 (4.2-5.4); White Blood Count 5.0 K/mm3 (4.4-11.0)
[2025-04-15] MEDS: Nystatin/Triamcin Cream Tube 1 APPLIC TOPICAL ×3 (08:14→20:43)
[2025-04-15] MEDS: SACUBITRIL/VALSARTAN 24/26 MG TABLET 1 EACH PO ×2 (08:19→20:42)
[2025-04-15 08:20] VITALS: BP 113/58; PULSE 78
[2025-04-15] MEDS: Metoprolol(XL)Succ 25 MG Tablet PO (08:20)
[2025-04-15 08:41] LABS: Anion Gap 15 (5-15); BUN 27 mg/dL (4-19); BUN/Creat Ratio 22.6 RATIO (10-20); Calcium,Total 9.5 mg/dL (7.6-11.0); Carbon Dioxide 20.0 mmol/L (21.0-32.0); Chloride 98 mmol/L (98-108); Estimated Creatinine Clearance 49.59 ml/min (50-250); Glucose 138 mg/dL (70-99); Magnesium 1.9 mg/dL (1.5-2.2); Potassium 3.4 mmol/L (3.3-5.1)
[2025-04-15 10:00] VITALS: PULSE 62; RESP 16; O2SAT 97
[2025-04-15] MEDS: 0.9% Normal Saline (1000mL) 1,000 ML 75 ML IV (10:57)
--- NOTE | 2025-04-15 11:32 | NURSING ---
NEW ORDER OF NS RATE 75ML VTBI 1000 ML. IV FLUSHED AND PATIENT. PATIENT HAS NO COMPLAINTS AT THIS TIME.
[2025-04-15 13:34] VITALS: BMI 34.4
[2025-04-15 18:00] VITALS: BP 124/55; PULSE 91; RESP 18; TEMP 36.4
--- NOTE | 2025-04-15 18:06 | PN_ITS ---
Subjective Subjective Afebrile Vital signs are stable and the blood pressure is well-controlled. All lab from this morning was personally reviewed. CBC is within normal limits. Sodium is down to 134 from 138 on 04/08/2025. Potassium today is 5.4 and the serum bicarb is 20. The BUN is 27, up from 18 on 04/08/2025. Creatinine is up to 1.17 from 0.69 on 04/08/2025. Magnesium is 1.9. Added denies lightheadedness, chest pain, shortness of breath, nausea, heartburn, epigastric pain, calf pain, dysuria. Objective Data Objective Data Vital Signs: Vital Signs Temp Pulse Resp BP Pulse Ox O2 Del Method O2 Flow Rate 97.0 F L 62 16 113/58 L 97 Room Air 2 04/15/25 05:58 04/15/25 10:00 04/15/25 10:00 04/15/25 08:20 04/15/25 10:00 04/15/25 10:00 04/02/25 00:00 FiO2 21 03/30/25 22:34 Oxygen Flow Rate (L/min) 2 Oxygen Delivery Method Room Air Weight: 214 lb 4.629 oz Body Mass Index (BMI) 34.4 Intake & Output: Intake and Output for Last 24 Hours 04/13/25 04/14/25 04/15/25 23:59 23:59 23:59 Intake Total 1600 / 1600 700 / 790 500 / 500 Output Total 150 / 150 1 / 1 Balance 1450 / 1450 700 / 789 499 / 499 Lab / Micro Data 04/15/25 08:00 04/15/25 08:00 Labs: Laboratory Results - last 24 hr 04/15/25 08:00: WBC 5.0, RBC 4.29, Hgb 13.1, Hct 37.4, MCV 87.2, MCH 30.5, MCHC 35.0, RDW Std Deviation 44.6 H, RDW Coeff of Tonny 14.2, Plt Count 331, MPV 10.8, Sodium 134, Potassium 3.4, Chloride 98, Carbon Dioxide 20.0 L, Anion Gap 15, BUN 27 H, Creatinine 1.17, Estim Creat Clear Calc 49.59 L, Est GFR (MDRD) Non-Af 49 L, BUN/Creatinine Ratio 22.6 H, Glucose 138 H, Calcium 9.5, Magnesium 1.9 Micro: Microbiology 04/06/25 04:15 Urine Catheter - Catheter Urine Culture - Final Yeast, not Gladis albicans 03/30/25 17:30 Urine, Clean Catch Urine Culture - Final Presumptive C albicans Physical Exam Const alert and no apparent distress General Appearance: cooperative HEENT Mouth: dry mucous membranes Resp clear to auscultation bilaterally Effort and Inspection: Negative for tachypneic Cardio regular rate, regular rhythm and no gallops Cardio Narrative: No ectopy GI normal to inspection, nondistended, normoactive bowel sounds, soft to palpation and non-tender GI Narrative: No guarding with palpation Extremity no calf tenderness Extremity Narrative: No pitting edema of the distal lower extremity. Skin Skin Narrative: Multiple areas of ecchymosis on her lower extremities secondary to using the Colette-Lift Psych Psych Narrative: Making good eye contact with me when we are speaking. Not tearful. Not restless or fidgety in the bed. Cooperative and pleasant. Assessment & Plan Assessment/Plan (1) Physical debility: (2) CVA (cerebral vascular accident): QUALIFIERS: CVA mechanism: unspecified Qualified Code(s): I63.9 - Cerebral infarction, unspecified (3) Left hemiplegia: (4) Aphasia complicating stroke: (5) Apraxia of speech: (6) Intertrigo of genitocrural region: (7) Intertrigo of skin fold of abdomen: (8) Urinary incontinence: QUALIFIERS: Urinary Incontinence type: urinary incontinence without sensory awareness Qualified Code(s): N39.42 - Incontinence without sensory awareness (9) Fecal incontinence: QUALIFIERS: Fecal incontinence type: full incontinence of feces Q ualified Code(s): R15.9 - Full incontinence of feces (10) Hypoxemia associated with sleep: (11) QT prolongation: (12) Pulmonary hypertension: (13) Hypercholesterolemia: (14) Hypertension: QUALIFIERS: Hypertension type: primary hypertension Qualified Code(s): I10 - Essential (primary) hypertension (15) Depression: QUALIFIERS: Depression Type: reactive depression Qualified Code(s): F32.9 - Major depressive disorder, single episode, unspecified PLAN: Plan 1. Continue therapy 2. Decrease Lasix to once daily in the AM. 3. Normal saline at 75 cc/h x 2 L. 4. Potassium 40 mEq x 1 5. Mild metabolic acidosis on Jardiance 10 mg daily -Will continue to monitor this and consider discontinuing Jardiance if persistent metabolic acidosis. I suspect the acidosis may improve with hydration. 6. She is tolerating duloxetine 20 mg daily without any adverse side effects. Will increase the dose to 30 mg. Charges/Coding Visit Charges Inpatient E&M: 49647 Subs Hosp L1
[2025-04-15] MEDS: Potassium Chloride Oral Tablet 20 MEQ 40 MEQ PO (18:50)
[2025-04-15] MEDS: MELATONIN 3 MG TABLET PO (20:42)
[2025-04-15 20:50] VITALS: PULSE 91; RESP 18; BMI 34.4
[2025-04-16] MEDS: 0.9% Normal Saline (1000mL) 1,000 ML 75 ML IV ×2 (00:56→13:19)
[2025-04-16 05:00] VITALS: BP 115/60; PULSE 90; RESP 15; TEMP 36.1; O2SAT 97; BMI 34.8
[2025-04-16] MEDS: Nystatin/Triamcin Cream Tube 1 APPLIC TOPICAL ×3 (05:13→20:32)
[2025-04-16 07:39] VITALS: BP 148/80; PULSE 76
[2025-04-16] MEDS: Metoprolol(XL)Succ 25 MG Tablet PO (07:39)
[2025-04-16] MEDS: SACUBITRIL/VALSARTAN 24/26 MG TABLET 1 EACH PO ×2 (07:39→20:32)
[2025-04-16 14:20] VITALS: BMI 34.8
[2025-04-16 18:00] VITALS: BP 123/66; PULSE 91; RESP 16; TEMP 37.2; O2SAT 98
[2025-04-16 20:17] VITALS: BMI 34.8
[2025-04-16] MEDS: MELATONIN 3 MG TABLET PO (20:32)
[2025-04-17] MEDS: 0.9% Normal Saline (1000mL) 1,000 ML 75 ML IV (02:43)
[2025-04-17] MEDS: Nystatin/Triamcin Cream Tube 1 APPLIC TOPICAL ×3 (05:54→19:50)
[2025-04-17 05:57] VITALS: BMI 34.7
[2025-04-17 05:58] VITALS: BP 131/72; PULSE 98; RESP 17; TEMP 36.8; O2SAT 94
[2025-04-17 08:15] VITALS: BP 111/60; PULSE 81
[2025-04-17] MEDS: Metoprolol(XL)Succ 25 MG Tablet PO (08:15)
[2025-04-17] MEDS: SACUBITRIL/VALSARTAN 24/26 MG TABLET 1 EACH PO ×2 (08:16→19:49)
[2025-04-17 08:30] VITALS: BP 111/68; PULSE 86
[2025-04-17] MEDS: 0.9% Saline Lock 10 ML Syringe IV ×2 (13:23→19:46)
[2025-04-17 14:50] VITALS: BMI 34.7
[2025-04-17 18:00] VITALS: BP 110/57; PULSE 90; RESP 16; TEMP 36.7; O2SAT 94
[2025-04-17 19:37] VITALS: BMI 34.7
[2025-04-17] MEDS: MELATONIN 3 MG TABLET PO (19:49)
[2025-04-17 19:50] VITALS: PULSE 92; RESP 16; O2SAT 100
--- NOTE | 2025-04-17 23:28 | NURSING ---
Pt refuses to keep O2 applied while sleeping.
[2025-04-18 00:09] VITALS: RESP 16; O2SAT 94
[2025-04-18] MEDS: Nystatin/Triamcin Cream Tube 1 APPLIC TOPICAL ×3 (05:00→19:48)
[2025-04-18 06:00] VITALS: BP 140/76; PULSE 93; RESP 16; TEMP 36.6; O2SAT 97; BMI 34.7
[2025-04-18 08:02] VITALS: BP 123/69; PULSE 100; RESP 18; TEMP 37; O2SAT 96
[2025-04-18 08:06] VITALS: BP 123/69; PULSE 100
[2025-04-18] MEDS: SACUBITRIL/VALSARTAN 24/26 MG TABLET 1 EACH PO ×2 (08:06→19:49)
[2025-04-18] MEDS: Metoprolol(XL)Succ 25 MG Tablet PO (08:06)
--- NOTE | 2025-04-18 08:30 | CASEMGMT ---
Social Work SW received VM from viktoria requesting referral to [facility]. SW sent referral via [facility]. Michelle Reaves MSW SUPERINTENDENT OF GENERATION
--- NOTE | 2025-04-18 09:38 | PCM.PROGNOTE ---
Subjective Subjective Brittani was seen on team rounds today. Family was present in the room. All questions were answered to their satisfaction. Afebrile VSS - Maintaining appropriate oxygen saturation on RA-94 to 100%. Not tachypneic. Oral intake - FOOD highly variable FLUIDS oral intake is fair to good when she is offered fluids. She had to have intravenous normal saline over the weekend for dehydration. Discussed with nursing - no problems that need addressed. Sleeping well at night. Remains incontinent of both urine and stool. Reviewed the THERAPY notes Medication list reviewed. Denies SOB, CP, lightheadedness, N/V/abd pain, calf pain, R side pain, RODRIGUES. she tells me that she is sleeping well and starting to have a better appetite. She is smiling and talking more. Enunciating and projecting much better. Objective Data Objective Data Vital Signs: Vital Signs Temp Pulse Resp BP Pulse Ox O2 Del Method O2 Flow Rate 98.6 F 100 18 123/69 H 96 Room Air 2 04/18/25 08:02 04/18/25 08:06 04/18/25 08:02 04/18/25 08:06 04/18/25 08:02 04/18/25 09:02 04/02/25 00:00 FiO2 21 03/30/25 22:34 Oxygen Flow Rate (L/min) 2 Oxygen Delivery Method Room Air Weight: 216 lb 7.903 oz Body Mass Index (BMI) 34.7 Intake & Output: Intake and Output for Last 24 Hours 04/16/25 04/17/25 04/18/25 23:59 23:59 23:59 Intake Total 3218.75 / 3218.75 2942.5 / 2942.5 Balance 3218.75 / 3218.75 2942.5 / 2942.5 Lab / Micro Data 04/15/25 08:00 04/18/25 10:40 Micro: Microbiology 04/06/25 04:15 Urine Catheter - Catheter Urine Culture - Final Yeast, not Gladis albicans 03/30/25 17:30 Urine, Clean Catch Urine Culture - Final Presumptive C albicans Physical Exam Const alert and no apparent distress Constitutional Narrative: talking more. Sitting up in the chair more. Smiling today. General Appearance: cooperative HEENT moist oral mucous membranes HEENT Narrative: No thrush. Resp normal respiratory effort and clear to auscultation bilaterally Effort and Inspection: Negative for tachypneic or labored Cardio regular rate, regular rhythm and no gallops Cardio Narrative: No ectopy GI normal to inspection, nondistended, normoactive bowel sounds, soft to palpation and non-tender GI Narrative: No guarding with palpation. Incontinent of stool most of the time. Extremity no calf tenderness Extremity Narrative: No pitting edema of the distal lower extremity. Skin Skin Narrative: Multiple areas of ecchymosis on her lower extremities secondary to using the Colette-Lift Rashes: no rashes Neuro Neuro Narrative: Less facial droop Expressive aphasia is improving. Psych Psych Narrative: Making good eye contact with me when we are speaking. Not tearful. Not restless or fidgety in the bed. Cooperative and pleasant. Affect is not as flat and she is more alert during the day. Sleeping well at night. Assessment & Plan Assessment/Plan (1) Physical debility: (2) CVA (cerebral vascular accident): QUALIFIERS: CVA mechanism: unspecified Qualified Code(s): I63.9 - Cerebral infarction, unspecified (3) Left hemiplegia: (4) Aphasia complicating stroke: (5) Apraxia of speech: (6) Urinary incontinence: QUALIFIERS: Urinary Incontinence type: urinary incontinence without sensory awareness Qualified Code(s): N39.42 - Incontinence without sensory awareness (7) Fecal incontinence: QUALIFIERS: Fecal incontinence type: full incontinence of feces Qualified Code(s): R15.9 - Full incontinence of feces (8) Hypoxemia associated with sleep: (9) QT prolongation: (10) Pulmonary hypertension: (11) Hypercholesterolemia: (12) Hypertension: QUALIFIERS: Hypertension type: primary hypertension Qualified Code(s): I10 - Essential (primary) hypertension (13) Depression: QUALIFIERS: Depression Type: reactive depression Qualified Code(s): F32.9 - Major depressive disorder, single episode, unspecified PLAN: Plan 1. Continue therapy 2. Check a BMP now. 3. Increase duloxetine to 30 mg daily 4. Sleep study postdischarge from rehab. Continue oxygen at night when she is sleeping. Charges/Coding Visit Charges Inpatient E&M: 90785 Subs Hosp L2
[2025-04-18 11:35] LABS: Anion Gap 14 (5-15); BUN 13 mg/dL (4-19); BUN/Creat Ratio 21.5 RATIO (10-20); Calcium,Total 9.3 mg/dL (7.6-11.0); Carbon Dioxide 18.4 mmol/L (21.0-32.0); Chloride 105 mmol/L (98-108); Estimated Creatinine Clearance 72.91 ml/min (50-250); Glucose 121 mg/dL (70-99); Potassium 3.1 mmol/L (3.3-5.1)
--- NOTE | 2025-04-18 12:59 | CASEMGMT ---
Social Work IDT met with patient, niece and sister for Team meeting. Discussed patient's progress in PT/OT/ST/SN/MD. Educated to [facility] insurance with NR[employer] 04/18 and continued stay is not guaranteed with each review. SW informed pt/family that [facility] does not have a bed available for possible LTC need. Pt is making improvements though. SW will continue to follow for DC planning. Michelle Reaves WOOL HANDLER SHOE MAKER
[2025-04-18] MEDS: Potassium Chloride Oral Tablet 20 MEQ 40 MEQ PO (15:15)
[2025-04-18] MEDS: 0.9% Saline Lock 10 ML Syringe IV ×2 (15:18→19:44)
[2025-04-18 17:38] VITALS: BP 108/36; PULSE 98; RESP 18; TEMP 36.6; O2SAT 97
[2025-04-18 19:34] VITALS: BMI 34.7
[2025-04-18 19:38] VITALS: RESP 15; O2SAT 98
[2025-04-18] MEDS: MELATONIN 3 MG TABLET PO (19:49)
[2025-04-19 01:22] VITALS: RESP 15; O2SAT 95
[2025-04-19 06:00] VITALS: BP 124/82; PULSE 94; RESP 15; TEMP 36.7; O2SAT 94; BMI 34.7
[2025-04-19] MEDS: Nystatin/Triamcin Cream Tube 1 APPLIC TOPICAL ×3 (06:23→20:27)
[2025-04-19 07:16] VITALS: O2SAT 97
[2025-04-19] MEDS: SACUBITRIL/VALSARTAN 24/26 MG TABLET 1 EACH PO ×2 (08:00→20:26)
[2025-04-19 08:01] VITALS: PULSE 94
[2025-04-19] MEDS: Metoprolol(XL)Succ 25 MG Tablet PO (08:01)
[2025-04-19] MEDS: Potassium Chloride Oral Tablet 20 MEQ PO (08:01)
[2025-04-19 13:36] VITALS: BMI 34.7
[2025-04-19 17:59] VITALS: BP 112/63; PULSE 99; RESP 17; TEMP 36.6
[2025-04-19 20:00] VITALS: BP 120/66; PULSE 86; RESP 16; TEMP 36.6; O2SAT 94
[2025-04-19] MEDS: MELATONIN 3 MG TABLET PO (20:26)
[2025-04-20 01:54] VITALS: BMI 34.7
[2025-04-20] MEDS: Nystatin/Triamcin Cream Tube 1 APPLIC TOPICAL ×3 (05:38→20:07)
[2025-04-20] MEDS: 0.9% Saline Lock 10 ML Syringe IV (05:42)
[2025-04-20 06:00] VITALS: BP 107/63; PULSE 101; RESP 16; TEMP 36.5; O2SAT 96; BMI 34.6
--- NOTE | 2025-04-20 07:16 | NURSING ---
Radio Announcer went into patient room and found blood on pt. face, bed, left hand and arm where saline lock was. Pt. pulled out saline lock out of her left hand. Pt. cleaned up and all clean linen replaced dirty linen. Site of saline lock already coagulated.
[2025-04-20] MEDS: Potassium Chloride Oral Tablet 20 MEQ PO (07:30)
[2025-04-20 07:31] VITALS: PULSE 101
[2025-04-20] MEDS: Metoprolol(XL)Succ 25 MG Tablet PO (07:31)
[2025-04-20] MEDS: SACUBITRIL/VALSARTAN 24/26 MG TABLET 1 EACH PO ×2 (07:31→20:05)
[2025-04-20 08:17] VITALS: O2SAT 95
[2025-04-20 09:13] LABS: Mucous, Urine 0 SEEN /hpf (<or=2+); Red Blood Cells-Urine 0 SEEN /hpf (0-5)
[2025-04-20 09:26] LABS: Glucose, Dipstick 250 mg/dl (Normal); Ketone-Dipstick Negative (Negative); Leukocyte Esterase-Dipstick 100 /ul (Negative); Nitrite-Dipstick Negative (Negative); Occult Blood-Urine Negative /ul (Negative); Protein-Dipstick Negative (Negative); Specific Gravity, Urine 1.005 (1.002-1.030); Urine Bilirubin Dipstick Negative (Negative)
[2025-04-20 09:29] LABS: Color, Urine Straw (Yellow)
[2025-04-20] MEDS: Lidocaine 2% Viscous15 ML UDC 15 ML PO (09:37)
[2025-04-20 09:39] LABS: Squamous Epithelial Cells - UA 0-5 SEEN /hpf (5-10)
[2025-04-20 11:26] VITALS: BMI 34.6
[2025-04-20 17:59] VITALS: BP 134/72; PULSE 105; RESP 18; TEMP 36.6; O2SAT 96
[2025-04-20 19:36] VITALS: BMI 34.6
[2025-04-20 20:00] VITALS: RESP 15; O2SAT 95
[2025-04-20] MEDS: MELATONIN 3 MG TABLET PO (20:06)
[2025-04-21] MEDS: Nystatin/Triamcin Cream Tube 1 APPLIC TOPICAL ×3 (05:04→21:42)
[2025-04-21 05:11] VITALS: BP 114/63; PULSE 94; RESP 16; TEMP 36.8; O2SAT 97; BMI 34.3
[2025-04-21 08:20] VITALS: O2SAT 98
--- NOTE | 2025-04-21 09:02 | PCM.PROGNOTE ---
Subjective Subjective Afebrile VSS - HR was increased yesterday.....She gets quite anxious when she has a problem and can not tell us what she needs. Had heartburn yesterday AM and nausea.......she was given a GI cocktail and then went to sleep but, she was anxious/agitated most of the day. Blood pressure is within goal. Maintaining appropriate oxygen saturation on RA-95 to 98%. Oral intake - FOOD she had some nausea and heartburn yesterday and ate poorly for breakfast and lunch but the last 2 meals have been good. FLUIDS good Her weight today is 212 pounds and 12 ounces which is down from 216 pounds and 11 ounces on 04/16/2025. Discussed with nursing -sleeping well at night. Reviewed the THERAPY notes Medication list reviewed. Currently taking duloxetine for depression/anxiety. Other antidepressants contraindicated due to QT prolongation. UA yesterday showed 5-10 WBCs per high-power field with no bacteria. There were no RBCs. Nitrite was negative. It was very pale yellow and clear. The potassium is 3.9 today following supplementation and the magnesium is 1.8. Ada tells me she is feeling much better today. she is participating in therapy and she is not moaning. She thinks she was tired yesterday. Objective Data Objective Data Vital Signs: Vital Signs Temp Pulse Resp BP Pulse Ox O2 Del Method O2 Flow Rate 98.3 F 94 16 114/63 98 Room Air 2 04/21/25 05:11 04/21/25 05:11 04/21/25 05:11 04/21/25 05:11 04/21/25 08:20 04/21/25 08:20 04/19/25 01:22 FiO2 21 03/30/25 22:34 Oxygen Flow Rate (L/min) 2 Oxygen Delivery Method Room Air Weight: 212 lb 11.937 oz Body Mass Index (BMI) 34.3 Intake & Output: Intake and Output for Last 24 Hours 04/19/25 04/20/25 04/21/25 23:59 23:59 23:59 Intake Total 1845 / 1845 1410 / 1410 346 / 346 Balance 1845 / 1845 1410 / 1410 346 / 346 Lab / Micro Data 04/15/25 08:00 04/21/25 07:36 Labs: Laboratory Results - last 24 hr 04/20/25 08:28: POC Glucose 137 H 04/20/25 08:52: Urine Color Straw, Urine Clarity Clear, Urine pH 6.5, Ur Specific [place] 1.005, Urine Protein Negative, Urine Glucose (UA) 250 H, Urine Ketones Negative, Urine Occult Blood Negative, Urine Nitrite Negative, Urine Bilirubin Negative, Urine Urobilinogen Normal, Ur Leukocyte Esterase 100 H, Urine RBC 0 SEEN, Urine WBC 5-10 SEEN, Ur Squamous Epith Cells 0-5 SEEN, Urine Bacteria 0 SEEN, Urine Mucus 0 SEEN Micro: Microbiology 04/06/25 04:15 Urine Catheter - Catheter Urine Culture - Final Yeast, not Gladis albicans 03/30/25 17:30 Urine, Clean Catch Urine Culture - Final Presumptive C albicans Assessment & Plan Assessment/Plan (1) Physical debility: (2) CVA (cerebral vascular accident): QUALIFIERS: CVA mechanism: unspecified Qualified Code(s): I63.9 - Cerebral infarction, unspecified (3) Left hemiplegia: (4) Aphasia complicating stroke: (5) Apraxia of speech: (6) Urinary incontinence: QUALIFIERS: Urinary Incontinence type: urinary incontinence without sensory awareness Qualified Code(s): N39.42 - Incontinence without sensory awareness (7) Fecal incontinence: QUALIFIERS: Fecal incontinence type: full incontinence of feces Qualified Code(s): R15.9 - Full incontinence of feces (8) Hypoxemia associated with sleep: (9) QT prolongation: (10) Pulmonary hypertension: (11) Hypercholesterolemia: (12) Hypertension: QUALIFIERS: Hypertension type: primary hypertension Qualified Code(s): I10 - Essential (primary) hypertension (13) Depression: QUALIFIERS: Depression Type: reactive depression Qualified Code(s): F32.9 - Major depressive disorder, single episode, unspecified (14) Hypokalemia: (15) Anxiety: PLAN: Plan 1. Continue therapy 2. Add BuSpar 5 mg with breakfast and 5 mg in the afternoon for better anxiety control. 3. Add potassium chloride 10 mEq daily. Repeat a BMP Friday. 4. IF she has any AF on the event monitor would start a Magnesium supplement to keep the mag around 2. 5. Plan discharge to [facility] on Friday. 6. she had a abnormal overnight trending pulse ox with multiple desaturations. Will need a sleep study in the future. For now will continue with O2 supplementation while sleeping. Charges/Coding Visit Charges Inpatient E&M: 90139 Subs Hosp L1
[2025-04-21 09:22] LABS: Magnesium 1.8 mg/dL (1.5-2.2); Potassium 3.9 mmol/L (3.3-5.1)
[2025-04-21] MEDS: SACUBITRIL/VALSARTAN 24/26 MG TABLET 1 EACH PO ×2 (10:16→21:43)
[2025-04-21 10:21] VITALS: BP 125/66; PULSE 72
[2025-04-21] MEDS: Metoprolol(XL)Succ 25 MG Tablet PO (10:21)
--- NOTE | 2025-04-21 13:32 | CASEMGMT ---
Addendum entered by Michelle Reaves 04/21/25 15:12: scheduled cot transport through [facility] for 1400 Original Note: Social Work SW received notification from [facility] insurance with D 04/25, DC 04/26. SW updated Matt Wagner of DC date and inquired about when to submit precert. Matt will submit precert tomorrow. SHASHI emailed Rachna and Carol to notify of DC date and submission of precert. SW will notify them with outcome of precert. SHASHI will coordinate cot transport at [place]. IDT updated. Plan: DC 04/26 to [facility], pending precert Michelle Reaves MSW CLINICAL REVIEW SPECIALIST
[2025-04-21] MEDS: Potassium Chloride Oral Tablet 10 MEQ PO (16:46)
[2025-04-21 17:00] VITALS: BMI 34.3
[2025-04-21 18:00] VITALS: BP 126/67; PULSE 102; RESP 17; TEMP 37; O2SAT 98
[2025-04-21] MEDS: MELATONIN 3 MG TABLET PO (20:24)
[2025-04-21 21:00] VITALS: BP 109/58; PULSE 94; RESP 16; TEMP 36.6; O2SAT 96
[2025-04-21 22:00] VITALS: RESP 16; O2SAT 96
[2025-04-22 03:53] VITALS: BMI 34.3
[2025-04-22] MEDS: Nystatin/Triamcin Cream Tube 1 APPLIC TOPICAL ×3 (05:32→22:50)
[2025-04-22 06:00] VITALS: BP 106/56; BP 118/64; PULSE 57; PULSE 94; RESP 16; TEMP 36.3; TEMP 36.6; O2SAT 92; O2SAT 98; BMI 34.2
[2025-04-22 08:14] VITALS: BP 127/66; PULSE 119; RESP 16; O2SAT 95
[2025-04-22 08:16] VITALS: BP 127/66; PULSE 119
[2025-04-22] MEDS: Potassium Chloride Oral Tablet 10 MEQ PO (08:16)
[2025-04-22] MEDS: SACUBITRIL/VALSARTAN 24/26 MG TABLET 1 EACH PO ×2 (08:16→22:46)
[2025-04-22] MEDS: Metoprolol(XL)Succ 25 MG Tablet PO (08:16)
--- NOTE | 2025-04-22 09:38 | CASEMGMT ---
Social Work Family acknowledged DC date. SW sent updated clinicals to Matt Wagner to start precert this date. Michelle Reaves FOUNDRY METALLURGIST CREDIT CLERK
--- NOTE | 2025-04-22 09:57 | PCM.PROGNOTE ---
Subjective Subjective Afebrile VSS - Maintaining appropriate oxygen saturation on RA Oral intake - FOOD good FLUIDS most of the time fluid intake is fair. Discussed with nursing - no problems that need addressed Reviewed the THERAPY notes Medication list reviewed. Brittani denies lightheadedness, cephalgia, chest pain, shortness of breath, heartburn, nausea/vomiting, abdominal pain, dysuria and feeling anxious. She is still incontinent of urine but she is able to let us know when she has to have a bowel movement. Objective Data Objective Data Vital Signs: Vital Signs Temp Pulse Resp BP Pulse Ox O2 Del Method O2 Flow Rate 97.4 F L 119 H 16 127/66 H 95 Room Air 2 04/22/25 06:00 04/22/25 08:16 04/22/25 08:14 04/22/25 08:16 04/22/25 08:14 04/22/25 08:14 04/19/25 01:22 FiO2 21 03/30/25 22:34 Oxygen Flow Rate (L/min) 2 Oxygen Delivery Method Room Air Weight: 211 lb 13.828 oz Body Mass Index (BMI) 34.2 Intake & Output: Intake and Output for Last 24 Hours 04/20/25 04/21/25 04/22/25 23:59 23:59 23:59 Intake Total 1410 / 1410 826 / 926 420 / 420 Output Total 50 / 50 Balance 1410 / 1410 776 / 876 420 / 420 Lab / Micro Data 04/15/25 08:00 04/21/25 07:36 Micro: Microbiology 04/06/25 04:15 Urine Catheter - Catheter Urine Culture - Final Yeast, not Gladis albicans 03/30/25 17:30 Urine, Clean Catch Urine Culture - Final Presumptive C albicans Physical Exam Const alert and no apparent distress Constitutional Narrative: She is smiling and talkative today. She does not appear in any distress at all and she does not appear anxious. She tells me she slept well last night. No moaning or yelling out. General Appearance: cooperative Resp normal respiratory effort and clear to auscultation bilaterally Effort and Inspection: Negative for tachypneic or labored Cardio regular rate, regular rhythm and no gallops Cardio Narrative: No ectopy GI normal to inspection, nondistended, normoactive bowel sounds, soft to palpation and non-tender Extremity no calf tenderness Extremity Narrative: No pitting edema of the distal lower extremity. Skin Rashes: no rashes Assessment & Plan Assessment/Plan (1) Physical debility: (2) CVA (cerebral vascular accident): QUALIFIERS: CVA mechanism: unspecified Qualified Code(s): I63.9 - Cerebral infarction, unspecified (3) Left hemiplegia: (4) Aphasia complicating stroke: (5) Apraxia of speech: (6) Urinary incontinence: QUALIFIERS: Urinary Incontinence type: urinary incontinence without sensory awareness Qualified Code(s): N39.42 - Incontinence without sensory awareness (7) Fecal incontinence: QUALIFIERS: Fecal incontinence type: full incontinence of feces Qualified Code(s): R15.9 - Full incontinence of feces (8) Hypoxemia associated with sleep: (9) QT prolongation: (10) Pulmonary hypertension: (11) Hypercholesterolemia: (12) Hypertension: QUALIFIERS: Hypertension type: primary hypertension Qualified Code(s): I10 - Essential (primary) hypertension (13) Depression: QUALIFIERS: Depression Type: reactive depression Qualified Code(s): F32.9 - Major depressive disorder, single episode, unspecified (14) Hypokalemia: (15) Anxiety: PLAN: Plan 1. Continue therapy 2. No changes to the drug regimen today 3. Discharged to [facility] on Friday 4. Will need a formal sleep study going forward. 5. Will need follow-up with cardiology to review the results of the 30-day event monitor 6. Needs follow-up with neurology 7. Continue BuSpar because the anxiety seems to be much better today. Continue duloxetine for treatment of anxiety/depression. She is sleeping well and eating well now. She is very cooperative with therapy and is making good progress. Charges/Coding Visit Charges Inpatient E&M: 52339 Subs Hosp L1
[2025-04-22 13:08] VITALS: BMI 34.2
[2025-04-22 17:49] VITALS: BP 131/38; PULSE 88; RESP 17; TEMP 36.9; O2SAT 97
[2025-04-22] MEDS: MELATONIN 3 MG TABLET PO (22:45)
[2025-04-23 01:15] VITALS: BMI 34.2
[2025-04-23] MEDS: Nystatin/Triamcin Cream Tube 1 APPLIC TOPICAL ×3 (05:39→21:18)
[2025-04-23 06:00] VITALS: BP 144/68; PULSE 95; RESP 17; TEMP 36.1; O2SAT 94; BMI 34.3
[2025-04-23] MEDS: Potassium Chloride Oral Tablet 10 MEQ PO (07:32)
[2025-04-23 07:35] VITALS: PULSE 95
[2025-04-23] MEDS: Metoprolol(XL)Succ 25 MG Tablet PO (07:35)
[2025-04-23] MEDS: SACUBITRIL/VALSARTAN 24/26 MG TABLET 1 EACH PO ×2 (07:37→21:20)
[2025-04-23 14:06] VITALS: BMI 34.3
[2025-04-23 17:59] VITALS: BP 130/60; PULSE 105; RESP 15; TEMP 36.4; O2SAT 97
[2025-04-23] MEDS: MELATONIN 3 MG TABLET PO (21:20)
[2025-04-23 21:25] VITALS: BP 129/73; PULSE 99; RESP 18
[2025-04-24 01:48] VITALS: BMI 34.3
[2025-04-24 05:28] VITALS: BP 128/73; PULSE 96; RESP 18; TEMP 36.6; O2SAT 97
[2025-04-24 05:30] VITALS: BMI 34.0
[2025-04-24 07:44] VITALS: PULSE 96
[2025-04-24] MEDS: Potassium Chloride Oral Tablet 10 MEQ PO (07:44)
[2025-04-24] MEDS: Metoprolol(XL)Succ 25 MG Tablet PO (07:44)
[2025-04-24] MEDS: SACUBITRIL/VALSARTAN 24/26 MG TABLET 1 EACH PO ×2 (07:44→20:35)
[2025-04-24 07:46] VITALS: BP 128/71; PULSE 118
[2025-04-24] MEDS: Nystatin/Triamcin Cream Tube 1 APPLIC TOPICAL ×2 (12:43→20:36)
[2025-04-24 12:57] VITALS: BMI 34.0
[2025-04-24 17:51] VITALS: BP 109/59; PULSE 98; RESP 17; TEMP 36; O2SAT 98
[2025-04-24 20:20] VITALS: BP 113/57; PULSE 90; RESP 16; TEMP 36.2; O2SAT 97
[2025-04-24] MEDS: MELATONIN 3 MG TABLET PO (20:20)
[2025-04-25 03:18] VITALS: PULSE 96; O2SAT 99
[2025-04-25 04:09] VITALS: BMI 34.0
[2025-04-25 04:59] VITALS: BMI 33.9
[2025-04-25] MEDS: Nystatin/Triamcin Cream Tube 1 APPLIC TOPICAL ×3 (05:09→19:35)
[2025-04-25 06:00] VITALS: BP 122/67; PULSE 93; RESP 16; TEMP 37.2; O2SAT 92
[2025-04-25 06:43] LABS: Hematocrit 36.9 % (37-47); Hemoglobin 12.5 g/dL (12.0-15.0); Mean Corp Hgb Conc 33.9 g/dL (32-36); Mean Corpuscular Volume 90.7 fL (81-99); Mean Platelet Vol. 10.7 fl (6.2-12.0); Platelet Count 229 K/mm3 (150-450); RBC Distribution Width CV 14.8 % (11.6-14.6); RBC Distribution Width SD 49.1 fl (35.1-43.9); Red Blood Count 4.07 M/mm3 (4.2-5.4); White Blood Count 5.0 K/mm3 (4.4-11.0)
[2025-04-25 06:53] VITALS: BMI 33.9
[2025-04-25 07:06] LABS: Anion Gap 13 (5-15); BUN 15 mg/dL (4-19); BUN/Creat Ratio 19.7 RATIO (10-20); Calcium,Total 9.4 mg/dL (7.6-11.0); Carbon Dioxide 22.4 mmol/L (21.0-32.0); Chloride 103 mmol/L (98-108); Estimated Creatinine Clearance 71.82 ml/min (50-250); Glucose 118 mg/dL (70-99); Magnesium 1.9 mg/dL (1.5-2.2); Potassium 3.7 mmol/L (3.3-5.1)
[2025-04-25 08:06] VITALS: PULSE 93
[2025-04-25] MEDS: Metoprolol(XL)Succ 25 MG Tablet PO (08:06)
[2025-04-25] MEDS: SACUBITRIL/VALSARTAN 24/26 MG TABLET 1 EACH PO ×2 (08:07→19:38)
[2025-04-25] MEDS: Potassium Chloride Oral Tablet 10 MEQ PO (08:07)
--- NOTE | 2025-04-25 09:34 | PCM.PROGNOTE ---
Subjective Subjective Brittani was seen on TEAM rounds today. Her sister and niece were present in the room. All questions were answered to their satisfaction. Afebrile VSS - Maintaining appropriate oxygen saturation on RA Oral intake - FOOD good FLUIDS continues to be poor......she will usually drink when offered fluids. Discussed with nursing - no problems that need addressed Reviewed the THERAPY notes Medication list reviewed. All lab drawn this morning was personally reviewed. White blood cell count, hemoglobin and platelets are all within normal limits. Sodium is 138 and the potassium is stable at 3.7. The BUN is 15 with a creatinine of 0.77 and BUN/creatinine ratio of 19.7. Calcium and magnesium are both normal. [place] denies pain, SOB, cough, nausea, dysuria, calf pain. She also denies feeling wnzious today. Objective Data Objective Data Vital Signs: Vital Signs Temp Pulse Resp BP Pulse Ox O2 Del Method O2 Flow Rate 99.0 F 93 16 122/67 H 92 Room Air 2 04/25/25 06:00 04/25/25 08:06 04/25/25 06:00 04/25/25 06:00 04/25/25 06:00 04/25/25 06:00 04/19/25 01:22 FiO2 21 03/30/25 22:34 Oxygen Flow Rate (L/min) 2 Oxygen Delivery Method Room Air Weight: 210 lb 5.136 oz Body Mass Index (BMI) 33.9 Intake & Output: Intake and Output for Last 24 Hours 04/23/25 04/24/25 04/25/25 23:59 23:59 23:59 Intake Total 980 / 980 545 / 545 120 / 120 Output Total 100 / 100 Balance 980 / 980 445 / 445 120 / 120 Lab / Micro Data 04/25/25 06:36 04/25/25 06:36 Labs: Laboratory Results - last 24 hr 04/25/25 06:36: WBC 5.0, RBC 4.07 L, Hgb 12.5, Hct 36.9 L, MCV 90.7, MCH 30.7, MCHC 33.9, RDW Std Deviation 49.1 H, RDW Coeff of Tonny 14.8 H, Plt Count 229, MPV 10.7, Sodium 138, Potassium 3.7, Chloride 103, Carbon Dioxide 22.4, Anion Gap 13, BUN 15, Creatinine 0.77, Estim Creat Clear Calc 71.82, Est GFR (MDRD) Non-Af 81, BUN/Creatinine Ratio 19.7, Glucose 118 H, Calcium 9.4, Magnesium 1.9 Micro: Microbiology 04/06/25 04:15 Urine Catheter - Catheter Urine Culture - Final Yeast, not Gladis albicans 03/30/25 17:30 Urine, Clean Catch Urine Culture - Final Presumptive C albicans Physical Exam Const alert and no apparent distress General Appearance: cooperative HEENT Mouth: dry mucous membranes Resp clear to auscultation bilaterally Resp Narrative: diminished, no conversational dyspnea and no MARADIAGA with therapy. She is not tachypneic. GI normal to inspection, nondistended, normoactive bowel sounds and soft to palpation Extremity General Extremity: Negative for edema Skin Skin Narrative: no rashes and the bruising of the Legs is resolving. Psych Psych Narrative: sleeping well and eating much better. Appearance: appropriate Attitude: No agitated Activity / Motor Behavior: Negative for restless Mood & Affect: Negative for depressed or anxious Assessment & Plan Assessment/Plan (1) Physical debility: (2) CVA (cerebral vascular accident): QUALIFIERS: CVA mechanism: unspecified Qualified Code(s): I63.9 - Cerebral infarction, unspecified (3) Left hemiplegia: (4) Aphasia complicating stroke: (5) Apraxia of speech: (6) Urinary incontinence: QUALIFIERS: Urinary Incontinence type: urinary incontinence without sensory awareness Qualified Code(s): N39.42 - Incontinence without sensory awareness (7) Fecal incontinence: QUALIFIERS: Fecal incontinence type: full incontinence of feces Qualified Code(s): R15.9 - Full incontinence of feces (8) Hypoxemia associated with sleep: PLAN: Abnormal overnight trending pulse ox. Must wear O2 at night when sleeping and with naps. Needs a sleep study at [place] from [facility]. (9) QT prolongation: PLAN: Avoid any medications that can prolong the QT interval. (10) Pulmonary hypertension: PLAN: Estimated RV systolic pressure in August of 2024 was 60. RV was mildly enlarged. (11) Hypercholesterolemia: PLAN: continue statin. Needs a lipid panel, liver panel and a CPK in 3 weeks post DC from rehab. Goal LDL is 70 or <. Goal HDL is 45 or greater. TRIG < 199. (12) Hypertension: QUALIFIERS: Hypertension type: primary hypertension Qualified Code(s): I10 - Essential (primary) hypertension PLAN: BP is at goal of < 135/80. (13) Depression: QUALIFIERS: Depression Type: reactive depression Qualified Code(s): F32.9 - Major depressive disorder, single episode, unspecified PLAN: Continue Duloxetine.....it does not prolong QT. (14) Anxiety: PLAN: Continue Buspar. When she gets anxious she moans and yells out and is agitated. Buspar has helped with this. She is tolerating 5 mg BID at the time of DC from rehab with no adverse side effects. (15) Hypokalemia: (16) Delirium: PLAN: Resolved with the discontinuation of Klonopin used to tx insomnia. (17) Insomnia: QUALIFIERS: Insomnia type: unspecified Qualified Code(s): G47.00 - Insomnia, unspecified PLAN: Has been taking Ambien 5 mg Q HS while on rehab. Would consider adding Buspar 10 mg at HS and discontinuing Ambien. (18) Mild aortic stenosis: (19) Mitral regurgitation: QUALIFIERS: Cardiac valve disease etiology: nonrheumatic Qualified Code(s): I34.0 - Nonrheumatic mitral (valve) insufficiency (20) Coronary artery disease: QUALIFIERS: Coronary Disease-Associated Artery/Lesion type: [place] artery [place] vs. transplanted heart: [place] heart Associated angina: without angina Qualified Code(s): I25.10 - Atherosclerotic heart disease of [place] coronary artery without angina pectoris (21) Left atrial enlargement: (22) UTI (urinary tract infection): QUALIFIERS: Urinary tract infection type: acute cystitis Hematuria presence: without hematuria Qualified Code(s): N30.00 - Acute cystitis without hematuria (23) Grade III diastolic dysfunction: (24) Cardiomyopathy: QUALIFIERS: Cardiomyopathy type: dilated Qualified Code(s): I42.0 - Dilated cardiomyopathy (25) GERD (gastroesophageal reflux disease): QUALIFIERS: Esophagitis presence: esophagitis presence not specified Qualified Code(s): K21.9 - Gastro-esophageal reflux disease without esophagitis PLAN: Controlled with Protonix 40 mg daily. She had CP while on rehab. It resolved with a GI cocktail and the cardiac enzymes and EKG were negative for ischemia. (26) Glucose intolerance: PLAN: HGBA1C is 5.7%. Avoid concentrated sweets and wt gain. (27) Left bundle branch block: (28) Diverticulosis: (29) Right renal stone: PLAN: Plan 1. Continue therapy today 2. PA and Lateral CXR today. 3. BNP now 4. Transfer to [facility] tomorrow for further skilled therapy 5. O2 any time she is sleeping after DC from rehab. Needs a sleep study once she is out of skilled therapy. 6. She will follow up with Dr. Craig from cardiology post DC from rehab........within 10-14 days. Charges/Coding Visit Charges Inpatient E&M: 22001 Subs Hosp L2
--- NOTE | 2025-04-25 09:50 | RAD_ITS ---
PROCEDURE: CHEST PA AND LATERAL 04/25/2025 REASON FOR EXAM: SHORTNESS OF BREATH/HX OF CM TECHNIQUE: Procedure Code: RADCXR Modality: DX Procedure: CHEST PA AND LATERAL COMPARISON: None FINDINGS: Hardware: A recording device is seen overlying the upper sternum. Heart: Heart size is moderately enlarged. Mediastinum: The mediastinal contour is unremarkable. Lungs: The lungs are clear. Bones: Degenerative changes are identified within the thoracic spine. RAD/Chest PA and Lateral IMPRESSION: Cardiomegaly. The lungs are clear. Reading Location: [place] [id number]
--- NOTE | 2025-04-25 10:00 | PCM.TXEXTCAR ---
Diet Diet Order/Speech Therapy: INPATIENT Hospital Diet / Speech Therapy Order(s) 03/30/25 16:18 Diet: Cardiac: Calorie-Controlled Food consistency:: Regular Liquid Consistency:: Regular/Thin Diet Comments: no straw How many daily calories?: 1800 calorie Routine Orders/Code Status Enema Type: Fleetz Suppository Type: Dulcolax 10mg Suppository Frequency: Daily PRN Routine Lab Work: BMP (BMP 04/28/25) and - (Liver profile, lipid panel and CPK in 3 weeks) Code Status: DNRCC-A (No intubation) DC O2, CPAP, BIPAP needs Home O2 Discharge instructions: Yes Type of respiratory needs?: Oxygen Oxygen frequency: With Sleeping (2 LPM) Oxygen liters per minute when sleepin Wound(s) Upper Bilateral Buttocks: Wound Type: shearing Right breast: Wound Type: open slit outter edge of rt foot: Wound Type: scabbed area Therapies Weight Bearing: Full weight bearing Physical Therapy: Eval and Treat Occupational Therapy: Eval and Treat Speech Therapy: Eval and Treat Problem/Diagnosis (1) Physical debility: Status: Chronic Code(s): R53.81 - Other malaise (2) CVA (cerebral vascular accident): Status: Chronic Code(s): I63.9 - Cerebral infarction, unspecified Comment: ischemic Left thalamus and L occipital lobe (3) Left hemiplegia: Status: Chronic Code(s): G81.94 - Hemiplegia, unspecified affecting left nondominant side (4) Aphasia complicating stroke: Status: Chronic (5) Apraxia of speech: Status: Chronic Code(s): R48.2 - Apraxia (6) Urinary incontinence: Status: Chronic Code(s): R32 - Unspecified urinary incontinence (7) Fecal incontinence: Status: Chronic Code(s): R15.9 - Full incontinence of feces Comment: Intermittent now rather than all the time (8) Hypoxemia associated with sleep: Status: Chronic Code(s): G47.36 - Sleep related hypoventilation in conditions classified elsewhere Plan: Abnormal overnight trending pulse ox. Must wear O2 at night when sleeping and with naps. Needs a sleep study at NH from custodial. (9) QT prolongation: Status: Chronic Code(s): R94.31 - Abnormal electrocardiogram [ECG] [EKG] Plan: Avoid any medications that can prolong the QT interval. (10) Pulmonary hypertension: Status: Chronic Code(s): I27.20 - Pulmonary hypertension, unspecified Plan: Estimated RV systolic pressure in August of 2024 was 60. RV was mildly enlarged. (11) Hypercholesterolemia: Status: Chronic Code(s): E78.00 - Pure hypercholesterolemia, unspecified Plan: continue statin. Needs a lipid panel, liver panel and a CPK in 3 weeks post DC from rehab. Goal LDL is 70 or <. Goal HDL is 45 or greater. TRIG < 199. (12) Hypertension: Status: Chronic Code(s): I10 - Essential (primary) hypertension Plan: BP is at goal of < 135/80. (13) Depression: Status: Chronic Code(s): F32.A - Depression, unspecified Plan: Continue Duloxetine.....it does not prolong QT. (14) Anxiety: Status: Chronic Code(s): F41.9 - Anxiety disorder, unspecified Plan: Continue Buspar. When she gets anxious she moans and yells out and is agitated. Buspar has helped with this. She is tolerating 5 mg BID at the time of DC from rehab with no adverse side effects. (15) Hypokalemia: Status: Resolved Code(s): E87.6 - Hypokalemia (16) Delirium: Status: Resolved Code(s): R41.0 - Disorientation, unspecified Plan: Resolved with the discontinuation of Klonopin used to tx insomnia. (17) Insomnia: Status: Chronic Code(s): G47.00 - Insomnia, unspecified Plan: Has been taking Ambien 5 mg Q HS while on rehab. Would consider adding Buspar 10 mg at HS and discontinuing Ambien. (18) Mild aortic stenosis: Status: Chronic Code(s): I35.0 - Nonrheumatic aortic (valve) stenosis (19) Mitral regurgitation: Status: Chronic Code(s): I34.0 - Nonrheumatic mitral (valve) insufficiency Comment: Moderate to severe (20) Coronary artery disease: Status: Acute Code(s): I25.10 - Atherosclerotic heart disease of [place] coronary artery without angina pectoris Comment: Nonobstructive. Less than 50% stenosis of the mid LAD and the mid RCA. GDMT (21) Left atrial enlargement: Status: Acute Code(s): I51.7 - Cardiomegaly (22) UTI (urinary tract infection): Status: Resolved Code(s): N39.0 - Urinary tract infection, site not specified Comment: Present at admission to rehab. Due to use of a Purewick catheter at the previous hospital. (23) Grade III diastolic dysfunction: Status: Chronic Code(s): I51.89 - Other ill-defined heart diseases (24) Cardiomyopathy: Status: Chronic Code(s): I42.9 - Cardiomyopathy, unspecified Comment: Most recent EF on TTE showed a EF of 22 - 27%. (25) GERD (gastroesophageal reflux disease): Status: Chronic Code(s): K21.9 - Gastro-esophageal reflux disease without esophagitis Plan: Controlled with Protonix 40 mg daily. She had CP while on rehab. It resolved with a GI cocktail and the cardiac enzymes and EKG were negative for ischemia. (26) Glucose intolerance: Status: Chronic Code(s): E74.39 - Other disorders of intestinal carbohydrate absorption Plan: HGBA1C is 5.7%. Avoid concentrated sweets and wt gain. (27) Left bundle branch block: Status: Chronic Code(s): I44.7 - Left bundle-branch block, unspecified (28) Diverticulosis: Status: Chronic Code(s): K57.90 - Diverticulosis of intestine, part unspecified, without perforation or abscess without bleeding (29) Right renal stone: Status: Acute Code(s): N20.0 - Calculus of kidney Plan 1. Continue therapy today 2. PA and Lateral CXR today. 3. BNP now 4. Transfer to [facility] tomorrow for further skilled therapy 5. O2 any time she is sleeping after DC from rehab. Needs a sleep study once she is out of skilled therapy. Allergies/Procedures Done in Hospital Allergies clonazepam (From Klonopin) Adverse Reaction (Intermediate, Verified 04/25/25 11:06) delirium Procedures: 2-D Echocardiogram (Severe left ventricular systolic dysfunction with an EF ranging from 22 to 27%. Grade 3 left ventricular diastolic dysfunction, mild to moderate mitral regurgitation, mild aortic regurgitation, mildly dilated ascending aorta at 3.9 cm. No PFO/ASD. Right ventricular systolic pressure estimated at ) and - (Overnight trending pulse ox showed that 70% of the time her oxygen saturation ranged from 90 to 100%. The rest of the time the oxygen saturation was 89% or less and she had 3 desaturation events lasting greater than 66 seconds with a low oxygen saturation of 73%.) Type of Care/Length of Stay Estimated LOS: Convalescent Care Less Than 30 days Type of Care Needed: Skilled Rehab Potential: Good Prognosis: Good Additional Orders/Day of Discharge H&P will serve as current which was dated: 03/31/25 Day of Discharge: 04/26/25 Dietary and Speech Recommendations Dietitian Recommendations/Changes: Will continue therapeutic diet as ordered 1800 calorie/cardiac. Monitor need to restrict carbohydrates if blood glucose rises. Fluid restriction as indicated per physician. Offer ONS as needed if PO declines at meals. Speech Linguistic Eval Summary: Speech Therapy Evaluation ? Inpatient Rehabilitation Patient Information: Patient was evaluated at bedside this date. She was alert, cooperative, and agreeable to participation. Orientation & Personal History: The patient demonstrated orientation to name via yes/no response and was able to repeat her name when modeled by the SPINAL SURGEON. She reported that she is unmarried, has no children, and currently resides with family. She further indicated that she independently manages her own medications. Auditory Comprehension: Performance across auditory comprehension tasks revealed the following: ? Personal yes/no questions: 90% accuracy ? Orientation to environment yes/no questions: 70% accuracy ? Factual yes/no questions: 80% accuracy ? Grammatically complex/comparison yes/no questions: 40% accuracy Execution of single-step commands was notably impaired, with the patient completing 30% independently, improving to 50% accuracy with SPINAL SURGEON modeling, and achieving 100% accuracy with [id number] assistance. The patient appeared to demonstrate comprehension of verbal directions (e.g., looking toward the ceiling when prompted) but exhibited significant difficulty with motor planning and execution of the command. Verbal Expression: Verbal expression is characterized by relatively preserved repetition skills at the word level, in contrast to significant apraxia of speech with pronounced motor planning deficits. Frequent perseverations were noted, with occasional code-switching into Haitian (patient is Mennonite and speaks Haitian in addition to Croatian). ? Confrontation Namin% independent accuracy; improved to 1/10 with carrier phrase cueing; 6/10 with combined carrier phrase and initial phoneme cueing; and ultimately 100% with ability to repeat an SPINAL SURGEON verbal model. ? Automatic Speech: Counting 1?10 completed with 100% accuracy. Patient successfully recited days of the week and months of the year following provision of the initial item by the SPINAL SURGEON (e.g., ?Friday?? or ?Aug??). Strengths: Repetition and automatic speech sequences emerged as relative strengths. Summary/Impression: Findings are consistent with moderate?severe expressive language impairment in the setting of apraxia of speech, with concomitant auditory comprehension deficits most evident during grammatically complex or multistep tasks. The patient presents with impaired functional communication, though benefits from structured cueing, modeling, and repetition support. Recommendations: The patient is an appropriate candidate for skilled speech-language pathology intervention. Ongoing therapy is recommended to target auditory comprehension, expressive language, and motor speech planning with the overall goal of maximizing functional communication and independence in preparation for safe discharge home at the highest level of function. Follow Up Care Please follow up with your Primary Care Physician in: Following DC from SNF. Please Follow Up With: Dr. Craig When: you have an appt scheduled for 05/13 and it is listed later in this document Please Follow Up With: NORA THOMPSON MD When: within 2 weeks Discharge Plan Admission Admit Date/Time: 03/30/25 15:35 Primary Reason for Your Visit: POST STROKE DEBILITY Attending Provider: Nicolle Seaman Primary Care Provider: Samina Ellsworth Instructions Additional Instructions / Restrictions: 1. She will need a sleep study following DC from custodial. She should be on O2 at 2LPM anytime she is sleeping. 2. She will get agitated and moan and yell out if she has any discomfort. She gets very frustrated when she can not tell you what is wrong with her. She will do this when she needs to have a BM and will also do this with pain and nausea. Occasional CP/nausea........resolves with GI cocktail. 3. She is able to answer questions yes and no with great accuracy. Sometimes when she is upset agitated we just have to keep asking her about symptoms/bodily functions until we hit on the right one. 4. she has been very cooperative and doing well with therapy. She is now able to ambulate and has many more words than she did at admission. She is sleeping well at night and most of the time has a good appetite. The Buspar has really helped with anxiety. If you have any questions please do not hesitate to call me at [phone]. 5. She is incontinent of urine so impossible to measure urine OP. would check daily weights and if the weight goes up by 5 lbs in 1 week increase Lasix to 40 mg BID until wt is back to baseline. Discharge Orders/Prescriptions Prescriptions: New acetaminophen 500 mg Tablet 1,000 mg PO Q8 PRN (Reason: pain/fever) Qty: 1 0RF furosemide 40 mg Tablet 40 mg PO DAILY Qty: 1 0RF buspirone 5 mg Tablet 5 mg PO 0700,1400 Qty: 1 0RF melatonin 3 mg Tablet 3 mg PO QHS Qty: 1 0RF magnesium hydroxide 400 mg/5 mL Suspension 30 ml PO X1 PRN (Reason: Constipation) Qty: 1 0RF bisacodyl 10 mg Suppository 10 mg TX X1 PRN (Reason: Constipation) Qty: 1 0RF nitroglycerin 0.4 mg Tablet, Sublingual 0.4 mg sublingual Q5M PRN (Reason: Cardiac/Chest Pain) Qty: 1 0RF nystatin 100,000 unit/gram Powder 1 applic topical 0600,2200 Qty: 1 0RF Protocol: *Topical Application Instructions APPLICATION INSTRUCTIONS: groin, under breast duloxetine 30 mg Capsule,Delayed Release(Dr/Ec) 30 mg PO DAILY Qty: 1 0RF menthol-zinc oxide [Calmoseptine] 0.44-20.6 % Ointment 1 applic topical 0600,2200 Qty: 1 0RF Protocol: *Topical Application Instructions APPLICATION INSTRUCTIONS: buttock pantoprazole 40 mg Tablet,Delayed Release (Dr/Ec) 40 mg PO DAILY Qty: 1 0RF zolpidem 5 mg Tablet 5 mg PO 2100 Qty: 7 0RF ondansetron 4 mg Tablet,Disintegrating 4 mg PO Q8H PRN PRN (Reason: Nausea/Vomiting) Qty: 1 0RF potassium chloride 10 mEq Tablet,Er Particles/Crystals 10 meq PO DAILYCM Qty: 1 0RF Continued ezetimibe 10 mg tablet 10 mg PO DAILY aspirin 81 mg tablet 81 mg PO DAILY atorvastatin [Lipitor] 40 mg tablet 40 mg PO QHS clopidogrel 75 mg tablet 75 mg PO DAILY sacubitril-valsartan [Entresto] 24-26 mg tablet 1 tab PO BID metoprolol succinate 25 mg tablet extended release 24 hr 25 mg PO DAILY spironolactone 25 mg tablet 12.5 mg PO DAILY Jardiance 10 mg tablet 10 mg PO DAILY Qty: 1 0RF Rx Instructions: Taking this for CHF not, for diabetes. Discontinued furosemide 40 mg tablet 40 mg PO BID nitrofurantoin monohyd/m-cryst [Macrobid] 100 mg capsule 100 mg PO BID Rx Instructions: must administer with a meal/food nystatin 100,000 unit/gram powder 1 applic topical BID Referrals / Follow Up: Nora Thompson-Neurology [Other] - Within 2 Weeks Sleep Study [Other] (Order when discharged from custodial) 30 Day Event Monitor [Other] (Is in place. Is to be removed on 05/02. Box to send monitor back was sent with pt. Make sure monitor and phone are in the box.) Verónica Craig [Other] - 05/13/25 11:30 am (Cardio) Samina Ellsworth PA [Primary Care Provider] - (dc to snf) Disposition Disposition (needs filled in before D/C Order can be placed): [facility] (2) CVA (cerebral vascular accident) Qualifiers: CVA mechanism: unspecified Qualified Code(s): I63.9 - Cerebral infarction, unspecified (6) Urinary incontinence Qualifiers: Urinary Incontinence type: urinary incontinence without sensory awareness Qualified Code(s): N39.42 - Incontinence without sensory awareness (7) Fecal incontinence Qualifiers: Fecal incontinence type: full incontinence of feces Qualified Code(s): R15.9 - Full incontinence of feces (12) Hypertension Qualifiers: Hypertension type: primary hypertension Qualified Code(s): I10 - Essential (primary) hypertension (13) Depression Qualifiers: Depression Type: reactive depression Qualified Code(s): F32.9 - Major depressive disorder, single episode, unspecified (17) Insomnia Qualifiers: Insomnia type: unspecified Qualified Code(s): G47.00 - Insomnia, unspecified (19) Mitral regurgitation Qualifiers: Cardiac valve disease etiology: nonrheumatic Qualified Code(s): I34.0 - Nonrheumatic mitral (valve) insufficiency (20) Coronary artery disease Qualifiers: Associated angina: without angina Coronary Disease-Associated Artery/Lesion type: [place] artery [place] vs. transplanted heart: [place] heart Qualified Code(s): I25.10 - Atherosclerotic heart disease of [place] coronary artery without angina pectoris (22) UTI (urinary tract infection) Qualifiers: Hematuria presence: without hematuria Urinary tract infection type: acute cystitis Qualified Code(s): N30.00 - Acute cystitis without hematuria (24) Cardiomyopathy Qualifiers: Cardiomyopathy type: dilated Qualified Code(s): I42.0 - Dilated cardiomyopathy (25) GERD (gastroesophageal reflux disease) Qualifiers: Esophagitis presence: esophagitis presence not specified Qualified Code(s): K21.9 - Gastro-esophageal reflux disease without esophagitis
[2025-04-25 10:59] LABS: Pro- Brain NATRIURETIC PEPTIDE 2666 pg/mL (<=900)
--- NOTE | 2025-04-25 11:29 | EX.DISCHREH ---
Providers Date of Admission: 03/30/25 Date of Discharge: 04/26/25 Primary Care Physician: SONAL Khan Consultations 03/30/25 16:49 Consult: Onc/Wound/diesel engine assembler Routine Comment: Reason for Consult:: evaluation of shearing/pressure injury Reason For Visit: STROKE Diagnosis Discharge Diagnosis (1) Physical debility: Status: Chronic Code(s): R53.81 - Other malaise (2) CVA (cerebral vascular accident): Status: Chronic Code(s): I63.9 - Cerebral infarction, unspecified Qualifiers: CVA mechanism: unspecified Qualified Code(s): I63.9 - Cerebral infarction, unspecified Plan: L thalamus and L occipital lobe. Ischemic. (3) Aphasia complicating stroke: Status: Chronic (4) Right hemiplegia: Status: Acute Code(s): G81.91 - Hemiplegia, unspecified affecting right dominant side (5) Apraxia of speech: Status: Chronic Code(s): R48.2 - Apraxia (6) Urinary incontinence: Status: Chronic Code(s): R32 - Unspecified urinary incontinence Qualifiers: Urinary Incontinence type: urinary incontinence without sensory awareness Qualified Code(s): N39.42 - Incontinence without sensory awareness (7) Fecal incontinence: Status: Chronic Code(s): R15.9 - Full incontinence of feces Qualifiers: Fecal incontinence type: full incontinence of feces Qualified Code(s): R15.9 - Full incontinence of feces (8) Hypoxemia associated with sleep: Status: Chronic Code(s): G47.36 - Sleep related hypoventilation in conditions classified elsewhere Plan: Abnormal overnight trending pulse ox. Must wear O2 at night when sleeping and with naps. Needs a sleep study at DC from [facility]. (9) QT prolongation: Status: Chronic Code(s): R94.31 - Abnormal electrocardiogram [ECG] [EKG] Plan: Avoid any medications that can prolong the QT interval. (10) Pulmonary hypertension: Status: Chronic Code(s): I27.20 - Pulmonary hypertension, unspecified Plan: Estimated RV systolic pressure in August of 2024 was 60. RV was mildly enlarged. (11) Hypercholesterolemia: Status: Chronic Code(s): E78.00 - Pure hypercholesterolemia, unspecified Plan: continue statin. Needs a lipid panel, liver panel and a CPK in 3 weeks post DC from rehab. Goal LDL is 70 or <. Goal HDL is 45 or greater. TRIG < 199. (12) Hypertension: Status: Chronic Code(s): I10 - Essential (primary) hypertension Qualifiers: Hypertension type: primary hypertension Qualified Code(s): I10 - Essential (primary) hypertension Plan: BP is at goal of < 135/80. (13) Depression: Status: Chronic Code(s): F32.A - Depression, unspecified Qualifiers: Depression Type: reactive depression Qualified Code(s): F32.9 - Major depressive disorder, single episode, unspecified Plan: Continue Duloxetine.....it does not prolong QT. (14) Anxiety: Status: Chronic Code(s): F41.9 - Anxiety disorder, unspecified Plan: Continue Buspar. When she gets anxious she moans and yells out and is agitated. Buspar has helped with this. She is tolerating 5 mg BID at the time of DC from rehab with no adverse side effects. (15) Hypokalemia: Status: Resolved Code(s): E87.6 - Hypokalemia (16) Delirium: Status: Resolved Code(s): R41.0 - Disorientation, unspecified Plan: Resolved with the discontinuation of Klonopin used to tx insomnia. (17) Insomnia: Status: Chronic Code(s): G47.00 - Insomnia, unspecified Qualifiers: Insomnia type: unspecified Qualified Code(s): G47.00 - Insomnia, unspecified Plan: Has been taking Ambien 5 mg Q HS while on rehab. Would consider adding Buspar 10 mg at HS and discontinuing Ambien. (18) Mild aortic stenosis: Status: Chronic Code(s): I35.0 - Nonrheumatic aortic (valve) stenosis (19) Mitral regurgitation: Status: Chronic Code(s): I34.0 - Nonrheumatic mitral (valve) insufficiency Qualifiers: Cardiac valve disease etiology: nonrheumatic Qualified Code(s): I34.0 - Nonrheumatic mitral (valve) insufficiency (20) Coronary artery disease: Status: Acute Code(s): I25.10 - Atherosclerotic heart disease of [place] coronary artery without angina pectoris Qualifiers: Associated angina: without angina Coronary Disease-Associated Artery/Lesion type: [place] artery [place] vs. transplanted heart: [place] heart Qualified Code(s): I25.10 - Atherosclerotic heart disease of [place] coronary artery without angina pectoris (21) Left atrial enlargement: Status: Acute Code(s): I51.7 - Cardiomegaly (22) UTI (urinary tract infection): Status: Resolved Code(s): N39.0 - Urinary tract infection, site not specified Qualifiers: Hematuria presence: without hematuria Urinary tract infection type: acute cystitis Qualified Code(s): N30.00 - Acute cystitis without hematuria (23) Grade III diastolic dysfunction: Status: Chronic Code(s): I51.89 - Other ill-defined heart diseases (24) Cardiomyopathy: Status: Chronic Code(s): I42.9 - Cardiomyopathy, unspecified Qualifiers: Cardiomyopathy type: dilated Qualified Code(s): I42.0 - Dilated cardiomyopathy Plan: EF is 22-27% on recent TTE. (25) GERD (gastroesophageal reflux disease): Status: Chronic Code(s): K21.9 - Gastro-esophageal reflux disease without esophagitis Qualifiers: Esophagitis presence: esophagitis presence not specified Qualified Code(s): K21.9 - Gastro-esophageal reflux disease without esophagitis Plan: Controlled with Protonix 40 mg daily. She had CP while on rehab. It resolved with a GI cocktail and the cardiac enzymes and EKG were negative for ischemia. (26) Glucose intolerance: Status: Chronic Code(s): E74.39 - Other disorders of intestinal carbohydrate absorption Plan: HGBA1C is 5.7%. Avoid concentrated sweets and wt gain. (27) Left bundle branch block: Status: Chronic Code(s): I44.7 - Left bundle-branch block, unspecified (28) Diverticulosis: Status: Chronic Code(s): K57.90 - Diverticulosis of intestine, part unspecified, without perforation or abscess without bleeding (29) Right renal stone: Status: Acute Code(s): N20.0 - Calculus of kidney Plan 1. Continue therapy today 2. Transfer to [facility] tomorrow for further skilled therapy 3. O2 any time she is sleeping after DC from rehab. Needs a sleep study once she is out of skilled therapy. 4. The event monitor is due to come off on 05/02/25 and will need to be mailed back.....box will be included. Her collar baster (Dr. Verónica Craig)will need to review the results of the 30 day event monitor and determine if any treatment is necessary. Medications at Discharge Home Medications aspirin 81 mg tablet 81 mg PO DAILY heart health 03/30/25 atorvastatin 40 mg tablet (Lipitor) 40 mg PO QHS cholesterol 03/30/25 clopidogrel 75 mg tablet 75 mg PO DAILY heart 03/30/25 ezetimibe 10 mg tablet 10 mg PO DAILY cholesterol 03/30/25 metoprolol succinate 25 mg tablet,extended release 24 hr 25 mg PO DAILY heart rate 03/30/25 sacubitril 24 mg-valsartan 26 mg tablet (Entresto) 1 tab PO BID CHF 03/30/25 spironolactone 25 mg tablet 12.5 mg PO DAILY blood pressure 03/30/25 acetaminophen 500 mg tablet 1,000 mg (2 x 500 mg) PO Q8 PRN pain/fever #1 TAB 04/25/25 bisacodyl 10 mg rectal suppository 10 mg MI X1 PRN Constipation #1 ea 04/25/25 buspirone 5 mg tablet 5 mg PO 0700,1400 #1 TAB 04/25/25 duloxetine 30 mg capsule,delayed release 30 mg PO DAILY #1 cap 04/25/25 empagliflozin 10 mg tablet (Jardiance) 10 mg PO DAILY glucose #1 TAB 04/25/25 furosemide 40 mg tablet 40 mg PO DAILY #1 TAB 04/25/25 magnesium hydroxide 400 mg/5 mL oral suspension 30 ml PO X1 PRN Constipation #1 mL 04/25/25 melatonin 3 mg tablet 3 mg PO QHS #1 TAB 04/25/25 menthol 0.44 %-zinc oxide 20.6 % topical ointment (Calmoseptine) 1 applic topical 0600,0 #1 g 04/25/25 nitroglycerin 0.4 mg sublingual tablet 0.4 mg sublingual Q5M PRN Cardiac/Chest Pain #1 TAB 04/25/25 nystatin 100,000 unit/gram topical powder 1 applic topical 0600,2200 #1 g 04/25/25 ondansetron 4 mg disintegrating tablet 4 mg PO Q8H PRN PRN Nausea/Vomiting #1 TAB 04/25/25 pantoprazole 40 mg tablet,delayed release 40 mg PO DAILY #1 TAB 04/25/25 potassium chloride 10 mEq tablet,extended release(part/cryst) 10 meq PO DAILYCM #1 TAB 04/25/25 zolpidem 5 mg tablet 5 mg PO 2100 #7 tabs 04/25/25 Physical Exam Const alert and no apparent distress Constitutional Narrative: calm and pleasant. not fidgety or restless. General Appearance: cooperative and well kempt HEENT normocephalic and head/scalp atraumatic HEENT Narrative: No thrush. [place] protrudes on the midline. Eyes PERRL, EOMs intact bilaterally, conjunctivae normal and no scleral icterus Eyes Narrative: No discharge eyes. No mattering of the eyelashes. No visual field cuts General Eye: normal appearance of both eyes Neck supple, no JVD, No nodes and no carotid bruits General: trachea midline Chest Chest: symmetrical chest wall rise Resp normal respiratory effort and clear to auscultation bilaterally Resp Narrative: Not tachypneic. MARADIAGA has improved since admission to rehab. No cough. BS's are somewhat diminished........may be due to body habitus. Effort and Inspection: able to speak in complete sentences Cardio regular rate, regular rhythm, S1 normal heart sound, S2 normal heart sound, no murmurs, no rub and no gallops Cardio Narrative: No ectopy GI normal to inspection, nondistended, normoactive bowel sounds, soft to palpation and non-tender GI Narrative: No guarding palpation. no CVA tenderness Narrative: Incontinent of urine. Denies dysuria. Back/Spine General Back: CVA tenderness Extremity no calf tenderness Extremity Narrative: No pitting edema of the LE's. ARAM wraps are in place for compression. Skin Skin Narrative: The skin over the perineum, inner thighs and lower abd has healed up nicely. No openings in the skin at DC. Had severe intertrigo with multiple openings in the skin at presentation to rehab. She still has some bruising over the LE's secondary to the FOX lift but, they are resolving. General Skin Exam: no breakdown; Negative for jaundice Rashes: no rashes Neuro Neuro Narrative: Alert and appropriate. Tongue protrudes on the midline. No facial asymmetry. Able to shrug shoulders bilaterally. No visual field cuts. She is able to lift the right upper extremity off the bed and has a fair tetryl nitrator operator on the right. She is able to lift the right leg off the bed and has some drift but it does not hit the bed. No weakness on the left side. Decreased sensation of the right face, right arm and right leg when compared to the left. No extinction. Positive expressive aphasia greater than receptive aphasia. No significant dysarthria. Enunciate as well and her voice projects well. No ataxia. Psych cooperative, speech normal, denies hallucinations and denies suicidal ideation Psych Narrative: She has good affect now......no longer flat and she is outgoing and talking a lot more. Interacting well with staff and smiling a lot. Not fidgety or restless. Does not appear anxious. She is sleeping well at [facility] and appetite has improved significantly. Has lost about 17 lbs since admission to rehab. Has been on a calorie restricted diet but, prior to being treated for depression she was not eating well at all. She is eating 50-100% of most meals at the time of DC from rehab. Activity / Motor Behavior: appropriate eye contact Mood & Affect: euthymic mood Weight / BMI Weight Weight: 210 lb 5.136 oz Body Mass Index (BMI) 33.9 ABG / Lab / Microbiology Data 04/25/25 06:36 04/25/25 06:36 Laboratory: Laboratory Results - last 24 hr 04/25/25 06:36: WBC 5.0, RBC 4.07 L, Hgb 12.5, Hct 36.9 L, MCV 90.7, MCH 30.7, MCHC 33.9, RDW Std Deviation 49.1 H, RDW Coeff of Tonny 14.8 H, Plt Count 229, MPV 10.7, Sodium 138, Potassium 3.7, Chloride 103, Carbon Dioxide 22.4, Anion Gap 13, BUN 15, Creatinine 0.77, Estim Creat Clear Calc 71.82, Est GFR (MDRD) Non-Af 81, BUN/Creatinine Ratio 19.7, Glucose 118 H, Calcium 9.4, Magnesium 1.9, NT pro BNP II 2666 H Microbiology: Microbiology 04/06/25 04:15 Urine Catheter - Catheter Urine Culture - Final Yeast, not Gladis albicans 03/30/25 17:30 Urine, Clean Catch Urine Culture - Final Presumptive C albicans Indicators for Scoring Admitted with or Primary Diagnosis of CVA/Stroke: Yes Hx of CVA/Stroke: Yes Modified Adriane Score MRS Score at time of Evaluation: 4-Moderate/severe disability NIHSS NIHSS 1a. Level of Consciousness: 0 - Alert; keenly responsive 1b. LOC Questions: 2 - Answers NEITHER question correctly 1c. LOC Commands: 0 - Performs BOTH tasks correctly 2. Best Gaze: 0 - Normal 3. Visual: 0 - No visual loss 4. Facial Palsy: 0 - Normal symmetrical movements 5a. Left Arm: 0 - No drift; arm holds 90 (or 45) degrees for full 10 seconds 5b. Right Arm: 1 - Drift; arm drifts downward but doesn?t hit the bed 6a. Left Le - No drift; leg holds 30-degree position for full 5 seconds 6b. Right Le - Drift; leg falls by the end of 5-seconds, but does not hit bed 7. Limb Ataxia: 0 - Absent 9. Best Language: 2 - Severe aphasia; 10. Dysarthria: 0 - Normal 11. Extinction and Inattention: 0 - No abnormality Total: 6 (Down from 11 at admission to rehab) Stroke Questions Stroke Team Activated: No D/C Instructions Diet Diet Order/Speech Therapy: INPATIENT Hospital Diet / Speech Therapy Order(s) 03/30/25 16:18 Diet: Cardiac: Calorie-Controlled Food consistency:: Regular Liquid Consistency:: Regular/Thin Diet Comments: no straw How many daily calories?: 1800 calorie Discharge order: Continue INPATIENT Hospital Diet / Speech Therapy Orders: No Discharge Diet: Low fat / Low cholesterol, 1800 Calorie Control Diet (Thin liquids, regular textures, no straws) and 6 Cup Fluid Restriction DC O2, CPAP, BIPAP Needs RN Home O2 qualification: No Data to Display PSN CPAP & BiPAP: BiPAP & CPAP Settings per PSN Fraction of Inspired Oxygen ( 21 03/30/25 22:34 FIO2) Home Oxygen Instructions: Home O2 discharge Instructions Type of respiratory needs? Oxygen 04/25/25 10:09 DC Oxygen Instruction Oxygen frequency With Sleeping 04/25/25 10:09 Oxygen liters per minute when 2 04/25/25 10:09 sleeping Home O2 Discharge instructions: Yes Type of respiratory needs?: Oxygen Oxygen frequency: With Sleeping (2 LPM) Oxygen liters per minute when sleepin DC home with Oxygen: Yes Home O2 MD Review: She is going to a SNF. Needs 2 LPM of supplemental oxygen anytime she is sleeping. Please Follow Up With: cardiology Meaningful Use Info Meaningful Use Meaningful Use Diagnoses (Choose all that apply): Ischemic CVA CVA Therapy Assessed for PT,OT and/or ST?: Yes Ischemic Stroke Antithrombotic order at d/c?: Yes Dx of Atrial fib/flutter?: No Anticoagulant at discharge?: No Reason anticoagulant not ordered: Treatment not Indicated (Has had a 30 day event monitor on while on rehab. I would not be surprised if she has PAF since she has an abnormal overnight trending pulse ox and I suspect she has RASHARD. ) Statin Dosing Therapy Reference: STATIN DOSE THERAPY REFERENCE: * Patients > 75 years receive moderate or high dose statin therapy. * Patients 75 years or YOUNGER should receive HIGH intensity statin dose unless contraindicated. You will be required to document reason for non-treatment if statin daily dose does not meet guidelines. HIGH DOSE STATIN THERAPY DAILY Atorvastatin > than or = to 40 mg Rosuvastatin > than or = to 20 mg Amlodipine + Atorvastatin > than or = to 2.5/40 mg Ezetimibe + Simvastatin 10/80 mg Simvastatin 80mg Statins at discharge?: Yes If patient is 75 or younger, pt will be discharged on HIGH intensity statin.: Yes Primary Dx Acute Ischemic CVA?: Yes IV thrombolytic ordered during stay?: No Reason IV thrombolytic not ordered: Procedure not Indicated Discharge Plan Admission Admit Date/Time: 03/30/25 15:35 Primary Reason for Your Visit: POST STROKE DEBILITY Attending Provider: Nicolle Seaman Primary Care Provider: Samina Ellsworth Instructions Additional Instructions / Restrictions: 1. She will need a sleep study following DC from [facility]. She should be on O2 at 2LPM anytime she is sleeping. 2. She will get agitated and moan and yell out if she has any discomfort. She gets very frustrated when she can not tell you what is wrong with her. She will do this when she needs to have a BM and will also do this with pain and nausea. Occasional CP/nausea........resolves with GI cocktail. 3. She is able to answer questions yes and no with great accuracy. Sometimes when she is upset agitated we just have to keep asking her about symptoms/bodily functions until we hit on the right one. 4. she has been very cooperative and doing well with therapy. She is now able to ambulate and has many more words than she did at admission. She is sleeping well at night and most of the time has a good appetite. The Buspar has really helped with anxiety. If you have any questions please do not hesitate to call me at [phone]. 5. She is incontinent of urine so impossible to measure urine OP. would check daily weights and if the weight goes up by 5 lbs in 1 week increase Lasix to 40 mg BID until wt is back to baseline. Discharge Orders/Prescriptions Prescriptions: New acetaminophen 500 mg Tablet 1,000 mg PO Q8 PRN (Reason: pain/fever) Qty: 1 0RF furosemide 40 mg Tablet 40 mg PO DAILY Qty: 1 0RF buspirone 5 mg Tablet 5 mg PO 0700,1400 Qty: 1 0RF melatonin 3 mg Tablet 3 mg PO QHS Qty: 1 0RF magnesium hydroxide 400 mg/5 mL Suspension 30 ml PO X1 PRN (Reason: Constipation) Qty: 1 0RF bisacodyl 10 mg Suppository 10 mg MI X1 PRN (Reason: Constipation) Qty: 1 0RF nitroglycerin 0.4 mg Tablet, Sublingual 0.4 mg sublingual Q5M PRN (Reason: Cardiac/Chest Pain) Qty: 1 0RF nystatin 100,000 unit/gram Powder 1 applic topical 06,0 Qty: 1 0RF Protocol: *Topical Application Instructions APPLICATION INSTRUCTIONS: groin, under breast duloxetine 30 mg Capsule,Delayed Release(Dr/Ec) 30 mg PO DAILY Qty: 1 0RF menthol-zinc oxide [Calmoseptine] 0.44-20.6 % Ointment 1 applic topical 599,2199 Qty: 1 0RF Protocol: *Topical Application Instructions APPLICATION INSTRUCTIONS: buttock pantoprazole 40 mg Tablet,Delayed Release (Dr/Ec) 40 mg PO DAILY Qty: 1 0RF zolpidem 5 mg Tablet 5 mg PO 2100 Qty: 7 0RF ondansetron 4 mg Tablet,Disintegrating 4 mg PO Q8H PRN PRN (Reason: Nausea/Vomiting) Qty: 1 0RF potassium chloride 10 mEq Tablet,Er Particles/Crystals 10 meq PO DAILYCM Qty: 1 0RF Continued ezetimibe 10 mg tablet 10 mg PO DAILY aspirin 81 mg tablet 81 mg PO DAILY atorvastatin [Lipitor] 40 mg tablet 40 mg PO QHS clopidogrel 75 mg tablet 75 mg PO DAILY sacubitril-valsartan [Entresto] 24-26 mg tablet 1 tab PO BID metoprolol succinate 25 mg tablet extended release 24 hr 25 mg PO DAILY spironolactone 25 mg tablet 12.5 mg PO DAILY Jardiance 10 mg tablet 10 mg PO DAILY Qty: 1 0RF Rx Instructions: Taking this for CHF not, for diabetes. Discontinued furosemide 40 mg tablet 40 mg PO BID nitrofurantoin monohyd/m-cryst [Macrobid] 100 mg capsule 100 mg PO BID Rx Instructions: must administer with a meal/food nystatin 100,000 unit/gram powder 1 applic topical BID Referrals / Follow Up: [facility] [Other] - Within 2 Weeks Sleep Study [Other] (Order when discharged from [facility]) 30 Day Event Monitor [Other] (Is in place. Is to be removed on 05/02. Box to send monitor back was sent with pt. Make sure monitor and phone are in the box.) Verónica Craig [Other] - 05/13/25 11:30 am (Cardio) Samina Ellsworth PA [Primary Care Provider] - (dc to snf) Disposition Disposition (needs filled in before D/C Order can be placed): Nursing Home Facility Charges/Coding Visit Charges Inpatient E&M: 09173 Disch Hosp >30min Hospital Course RU Operations None Procedures 2-D Echocardiogram (Results are listed on the DC instructions. EF 22-27% with RV systolic pressure of 60. Grade III DD. LAE. No PFO. ) Summary of Care Provided Minutes Spent on Discharge: 55 Hospital Course: OFX AguilarBrittaninick SEPULVEDA, is a 74 YO F with a PMH of anemia, hypertension, GERD, Diverticulosis, nephrolithiasis, non-obstructive CAD, morbid obesity class II, pulmonary HTN and CM/congestive heart failure who presented to the emergency department at [facility] on 03/24/2025 with acute mental status changes. Family had not seen or heard from her in 3 days and called the police for a wellness check. She was found unresponsive in the bathroom. Noncontrast CT brain done in the emergency department demonstrated subacute versus chronic infarct involving the left thalamus and the left occipital lobe. Lactate level was elevated at 3.2. The white blood cell count was 14,000 and UA was consistent with urinary tract infection. The BUN was 23 with a creatinine of 0.78. The troponin was elevated at 184 and 180 while she was in the emergency department. No CK was done. She was placed on IV Rocephin for UTI but, unfortunately no urine culture was done. She had BC's done and 08/12 was + for a coag neg Staph. MRI of the brain showed findings consistent with subacute ischemia involving the left thalamus and left occipital lobe. She was started on aspirin and Plavix and dual antiplatelet agents were continued for a total of 21 days and then aspirin was discontinued. She remains on Plavix 75 mg daily. She was continued on Zetia and started on a high intensity statin. Transthoracic echocardiogram showed severe left ventricular systolic dysfunction with an EF ranging from 22.26% to 27.4%. There was grade 3 left ventricular diastolic dysfunction, mild to moderate mitral regurgitation, mild aortic regurgitation, a mildly dilated ascending aorta at 3.9 cm. There was no PFO/ASD. In August 2024 a transthoracic echocardiogram showed an estimated right ventricular pressure of 60 with a mildly dilated right ventricle. Brittani was transferred to the acute inpt rehab unit at [facility] on 03/30/25 for 3 hour of therapy daily to restore function/independence at or near her level prior to the event. Prior the stroke she was living alone and managing on her own. At presentation to rehab she had severe intertrigo involving the perineum, medial thighs and the lower abd. The areas were excoriated with openings in the skin. She reportedly had a Purewick catheter at the previous institution. A UA was obtained via straight cath and it showed greater than 100 WBCs per high-powered field with +1 yeast. Urine culture grew Gladis Albicans. She was treated with topical antifungals and intravaginal Monistat. She also had thrush and this was treated with Mycelex. A Barillas catheter was inserted until the intertrigo/excoriations improved and then it was discontinued. She is persistently incontinent of urine since the Barillas was removed but, post void residuals are good and she is not retaining. Brtitani had insomnia at admission to rehab. She has QT prolongation and many medications were contraindicated. She was started on Klonopin 0.5 mg at . She became delirious with this medication and it was discontinued with resolution of delirium but, the insomnia returned. She was started on Ambien and she has been sleeping well. Brittani developed both depression and anxiety while on rehab. We were limited in choice of antidepressants because of the WT prolongation. She was started on duloxetine 20 mg daily and tolerated this well. The dose was increased to 30 mg daily and this is what she is being discharged on. The depression markedly improved and her appetite improved and he cooperation with therapy. She continued to have anxiety/frustration/agitation at times. She was started on Buspar 5 mg in the AM and 5 mg in the afternoon and this has improved. Would try adding a dose at HS to see if maybe she could do without Ambien. At the time of DC from rehab Brittani is cooperative and making good progress with therapy. Appetite is good and she is sleeping well at night. Agitation/frustration at not being able to tell us what she needs has improved with Buspar. She is very pleasant and she is making good eye contact with me when we are speaking. Lab 1 day prior to DC showed a normal CBC and the BMP was unremarkable. K was 3.7 and the sodium was stable at 138. The BUN was 15 with a creatinine of 0.77 (the creatinine has ranged from 0.62-1.17 while she has been on rehab. The BNP was elevated at 2666. A PA and lat CXR showed no effusions and no pulmonary vascular congestion. She has no pitting edema of the lower extremities. Lungs are clear to auscultation. Brittani did quite well on rehab. She is able to do 7 sit to stands in 30 seconds using the left upper extremity to pull up on the wall rail. She has ambulated up to 22 feet at the wall rail for 3 trials at [facility] assist without wheelchair follow at the time of discharge. She is advancing the right lower extremity with a step through pattern without focal cues. She is supervision/set up for eating and upper body dressing. She requires minimal assistance with grooming and bathing. She requires maximum assistance with lower body dressing. She needs moderate assistance with toilet transfer and she is total assist with toileting and tub/shower transfer. she is speaking more and is enunciating/projecting well. Expressive aphasia >>receptive. Still having a lot of trouble with word finding but, has many more words than at admission. She is sleeping well at night and appetite has improved. anxiety is much better since Buspar was added to the drug regimen. At [place] form half-way she will need a sleep study. Overnight trending pulse ox was abnormal and she desaturates when sleeping. I strongly suspect she has RASHARD. She has had a 30 day event monitor on during her stay on rehab. It is due to come off on 05/02/25. Results of this study should be sent to her collar baster, Dr. Verónica Craig. She has an appt with Dr. Craig scheduled for 05/13/25.
[2025-04-25] MEDS: Potassium Chloride Oral Tablet 20 MEQ PO (11:31)
[2025-04-25 12:41] VITALS: BMI 33.9
--- NOTE | 2025-04-25 12:46 | CASEMGMT ---
Social Work IDT met with patient, niece and other sister, Dora, for Team meeting. Discussed patient's progress in PT/OT/ST/SN/MD. [facility] insurance approved [facility] SNF for skilled stay. Pt to DC 04/26 as planned. Transport scheduled for 1400. Family and pt agreeable. No other needs noted. Michelle Reaves PRE [employer]LE COUNSELING AIDE DREDGE PIPEMAN
[2025-04-25 18:00] VITALS: BP 140/62; PULSE 98; RESP 16; TEMP 36.6; O2SAT 98
[2025-04-25 19:22] VITALS: PULSE 98; RESP 16; O2SAT 98
[2025-04-25 19:33] VITALS: BMI 33.9
[2025-04-25] MEDS: MELATONIN 3 MG TABLET PO (19:39)
[2025-04-26 01:30] VITALS: RESP 16; O2SAT 94
[2025-04-26] MEDS: Nystatin/Triamcin Cream Tube 1 APPLIC TOPICAL (05:34)
[2025-04-26 05:38] VITALS: BP 136/71; PULSE 91; RESP 16; TEMP 36.7; O2SAT 95
[2025-04-26 06:00] VITALS: BMI 34.0
[2025-04-26 08:05] VITALS: O2SAT 99
[2025-04-26 08:30] VITALS: BP 128/68; PULSE 95
[2025-04-26] MEDS: Metoprolol(XL)Succ 25 MG Tablet PO (08:30)
[2025-04-26] MEDS: Potassium Chloride Oral Tablet 10 MEQ PO (08:30)
[2025-04-26] MEDS: SACUBITRIL/VALSARTAN 24/26 MG TABLET 1 EACH PO (08:30)
[2025-04-26 12:15] VITALS: BMI 34.0
--- NOTE | 2025-04-26 14:54 | NURSING ---
Patient discharged to SNF and ambulance transport here, report given to SNF.
== END 2025-04-26 14:54 | disposition skilled nursing facility (03) | DRG 57 ==
PROVIDERS: Admitting Provider Internal Medicine; Visit Provider Internal Medicine
DX: I69.354 Hemiplegia and hemiparesis following cerebral infarction affecting left non-dominant side (principal); B37.0 Candidal stomatitis; I42.0 Dilated cardiomyopathy; I50.42 Chronic combined systolic (congestive) and diastolic (congestive) heart failure; N30.00 Acute cystitis without hematuria; I27.20 Pulmonary hypertension, unspecified; I69.320 Aphasia following cerebral infarction; I11.0 Hypertensive heart disease with heart failure; F32.9 Major depressive disorder, single episode, unspecified; I08.0 Rheumatic disorders of both mitral and aortic valves; I77.810 Thoracic aortic ectasia; Z68.36 Body mass index [BMI] 36.0-36.9, adult; I69.390 Apraxia following cerebral infarction; E87.6 Hypokalemia; K57.30 Diverticulosis of large intestine without perforation or abscess without bleeding; F41.9 Anxiety disorder, unspecified; I44.7 Left bundle-branch block, unspecified; I25.10 Atherosclerotic heart disease of native coronary artery without angina pectoris; K21.9 Gastro-esophageal reflux disease without esophagitis; E78.00 Pure hypercholesterolemia, unspecified; L30.4 Erythema intertrigo; G47.33 Obstructive sleep apnea (adult) (pediatric); I69.322 Dysarthria following cerebral infarction; R15.9 Full incontinence of feces; E86.0 Dehydration; M54.50 Low back pain, unspecified; E74.39 Other disorders of intestinal carbohydrate absorption; G47.00 Insomnia, unspecified; N39.42 Incontinence without sensory awareness; Z79.82 Long term (current) use of aspirin; E66.812 Obesity, class 2; N20.0 Calculus of kidney; Z79.84 Long term (current) use of oral hypoglycemic drugs; Z79.899 Other long term (current) drug therapy; R94.31 Abnormal electrocardiogram [ECG] [EKG]; Z79.02 Long term (current) use of antithrombotics/antiplatelets; R07.89 Other chest pain
CPT/HCPCS: 36415; 71046; 72100; 74018; 80048; 80053; 81001; 82962; 83036; 83735; 83880; 84100; 84132; 84484; 85025; 85027; 85610; 85730; 87086; 87088; 92507; 92523; 93005; 94668; 94762; 97032; 97110; 97112; 97116; 97162; 97167; 97530; 97535; 97542; 97802; 97803; A4216